=== PATIENT | female | born 1975 | race Caucasian/White ===

== ENCOUNTER 2020-04-11 16:56 | Emergency (ER) | payer OTHER, SELFPAY ==
--- NOTE | ~2020-04-11 | XR_ITS ---
EXAMINATION: XR chest 2V 04/11/2020 18:10 INDICATION: Mid chest pain and hypertension. MRI. PROCEDURE: 2 view chest COMPARISON: Comparison to multiple prior studies sequentially, with oldest reviewed study dated 09/15. FINDINGS: The lungs are clear. The cardiomediastinal silhouette is within normal limits. There are no pleural effusions. There is no pneumothorax suspected. IMPRESSION: 1: NO ACUTE CARDIOPULMONARY DISEASE. Reviewed, dictated and finalized at location A.
--- NOTE | ~2020-04-11 | CT_ITS ---
EXAMINATION: CT BRAIN W/O DATE: 04/11/2020 19:17 INDICATION: Weakness and dizziness TECHNIQUE: Computed tomography (CT) of the head was performed without intravenous contrast. The dose- length product was 605.33 mGy-cm. Automated exposure control and iterative reconstruction technique w ere employed. COMPARISON: No prior studies for comparison. FINDINGS: Normal brain parenchymal volume for age. Normal ontiveros-white differentiation. No acute intrac ranial hemorrhage, infarction, mass or mass effect. No ventriculomegaly or midline shift. Midline sagittal images demonstrate a normal corpus callosum, c raniovertebral junction and sella turcica. Basilar cisterns are patent. Paranasal sinuses and mastoids are pneumatized. No depressed skull fractures. IMPRESSION: 1. No acute intracranial abnormality. Reviewed, dictated and finalized at location A.
[2020-04-11 17:37] VITALS: BP 157/99; PULSE 72; PULSE 76; RESP 15; TEMP 37; O2SAT 98
--- NOTE | 2020-04-11 17:46 | ECG_ITS ---
Measurements Intervals [place] Rate: 79 P: 55 NM: 149 QRS: 10 QRSD: 114 T: -7 QT: 377 QTc: 432 Interpretive Statements SINUS RHYTHM POSSIBLE LEFT ATRIAL ENLARGEMENT INCOMPLETE RIGHT BUNDLE BRANCH BLOCK BORDERLINE ST-T WAVE ABNORMALITY- INFERIOR LEADS BASELINE ARTIFACT- I, III, AVL BORDERLINE ECG Electronically Signed On 04-12-2020 7:00:18 CDT by Austen Kauffman D.O.
[2020-04-11 17:58] LABS: Basophils Absolute Auto 0.1 K/mm3 (0.0-0.1); Eosinophils Absolute Auto 0.1 K/mm3 (0-0.3); Eosinophils Percent Auto 1.5 % (0-4.4); Hematocrit 40.5 % (37.0-47.0); Hemoglobin 13.3 g/dL (12.0-15.0); Immature Granulocyte Absolute 0.01 K/mm3 (0.00-0.031); Immature Granulocyte Percent A 0.2 % (0-0.5); Lymphocytes Absolute Auto 2.82 K/mm3 (0.9-3.2); Mean Corpuscular HGB Conc 32.8 g/dl (32-36); Mean Corpuscular Hemoglobin 28.5 pg (26-34); Mean Corpuscular Volume 86.9 fl (80-100); Mean Platelet Volume 10.7 fl (7.4-10.4); Monocytes Absolute Auto 0.5 K/mm3 (0.1-0.6); Monocytes Percent Auto 7.7 % (2.6-8.5); Neutrophils Absolute Auto 2.5 K/mm3 (1.3-6.7); Neutrophils Percent Auto 41.6 % (45.5-73.1); Platelet Count Result 235 k/mm3 (150-375); Red Blood Count 4.66 M/mm3 (4.2-5.4); Red Cell Distribution Width 12.6 % (11.5-14.5); White Blood Count 5.9 K/mm3 (4.5-10.0)
--- NOTE | 2020-04-11 18:00 | PC.NURSE ---
Pt taken to Xray
[2020-04-11 18:09] LABS: Prothrombin Time 12.4 Seconds (11.1-14.7)
[2020-04-11 18:10] LABS: Partial Thromboplastin Time 28.6 SECONDS (22.3-36.8)
[2020-04-11 18:21] LABS: Blood Urea Nitrogen 20 mg/dL (7-17); Calcium 9.1 mg/dL (8.4-10.2); Carbon Dioxide 30 mmol/L (22-30); Chloride 102 mmol/L (98-107); Estimated CRCL calculation 103 ml/min; Estimated Glomerular Filt Rate > 60; Glucose 83 mg/dL (65-105); Potassium 3.8 mmol/L (3.4-5.0); Sodium 138 mmol/L (137-145)
[2020-04-11] MEDS: ASPIRIN 81 MG CHEWABLE TABLET 324 MG PO (18:21)
[2020-04-11 18:33] LABS: Troponin I < 0.012 ng/mL (0.000-0.034)
--- NOTE | 2020-04-11 18:42 | ED.CHESTPAIN ---
HPI - Chest Pain General Chief Complaint: Chest Pain Stated Complaint: chest tightness Time Seen by Provider: 04/11/20 18:27 Source: patient Mode of arrival: ambulatory Limitations: no limitations History of Present Illness HPI narrative: This is a 44 year old female that presents to the ER for chest tightness that started 3 hours prior to arrival. Reports she was sitting at work and started to note some chest tightness. Reports she got lightheaded and felt weak. Also reports nausea and a headache. Denies fever, shortness of breath, or cough. Related Data Home Medications Medication Instructions Recorded Confirmed aspirin 81 mg tablet,delayed 81 mg PO DAILY 12/03/19 04/11/20 release atorvastatin 40 mg tablet 40 mg PO DAILY 12/03/19 04/11/20 losartan 25 mg tablet 25 mg PO DAILY 12/03/19 04/11/20 metoprolol succinate 25 mg 25 mg PO DAILY 12/03/19 04/11/20 tablet,extended release 24 hr Allergies Allergy/AdvReac Type Severity Reaction Status Date / Time No Known Allergies Allergy Verified 04/11/20 17:43 Review of Systems Review of Systems: Narrative: CONSTITUTIONAL: Denies fever CARDIOVASCULAR: Reports chest pain RESPIRATORY: Denies cough or dyspnea. GASTROINTESTINAL: Reports nausea. Denies vomiting NEUROLOGIC: Reports headache and weakness. 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 HEAD: Normocephalic, atraumatic. EYES: EOMI. NECK: Supple. No adenopathy or masses. No carotid bruits or JVD CHEST: Clear to auscultation. No respiratory distress. No wheezes rales or rhonchi HEART: Regular rate and rhythm. No murmur heard. Normal peripheral pulses. EXTREMITIES: Normal range of motion. No edema. SKIN: Warm, dry, no rash. NEURO: No focal deficits. Alert and oriented x3. PSYCH: Normal mood and affect Course Vital Signs Vital signs: Vital Signs Temperature 98.6 F 04/11/20 17:37 Pulse Rate 72 04/11/20 17:37 Respiratory Rate 15 04/11/20 17:37 Blood Pressure 157/99 H 04/11/20 17:37 Pulse Oximetry 98 04/11/20 17:37 Temperature 98.6 F 04/11/20 17:37 Pulse Rate 70 04/11/20 20:43 Respiratory Rate 15 04/11/20 20:43 Blood Pressure 113/73 04/11/20 20:43 Pulse Oximetry 99 04/11/20 20:43 MDM - Chest Pain MDM Narrative Medical decision making narrative: Patient presents the emergency department for an episode of chest pain today. Patient's chest pain has resolved. Vitals are normal other than mild elevation of blood pressure to systolic in the 160s on arrival. CBC and metabolic panel are without acute changes. Baseline and 3-hour troponin are negative. No concerning changes on EKG. Shows evidence of her old AR. Appears the same as EKG from July 2018. Chest x-ray is without acute changes. CT scan of the brain is without acute abnormalities. Patient's heart score is 3. Currently denies any symptoms. Reports she is feeling better after fluids and Tylenol. Patient had a stress test in July 2018 which was un
[2020-04-11] MEDS: SODIUM CHLORIDE 0.9% IV 500 ML 999 ML IV CONT (19:07)
[2020-04-11 19:21] VITALS: BP 140/85; PULSE 62
[2020-04-11 19:23] VITALS: BP 136/85; BP 152/86; PULSE 65; PULSE 69
[2020-04-11 19:28] VITALS: BP 136/85; PULSE 67; RESP 22; O2SAT 100
--- NOTE | 2020-04-11 19:28 | PC.NURSE ---
Assumed care of pt at this time. report from YAMILE Zaman
[2020-04-11 20:43] VITALS: BP 113/73; PULSE 70; RESP 15; O2SAT 99
[2020-04-11 21:21] LABS: Troponin I < 0.012 ng/mL (0.000-0.034)
[2020-04-11 21:50] VITALS: BP 129/95; PULSE 63; RESP 23; O2SAT 94
== END 2020-04-11 21:50 | disposition home or self-care (01) ==
PROVIDERS: Physician Assistant; Emergency Provider Emergency Medicine; PCP Internal Medicine
DX: R07.89 Other chest pain (principal); I25.10 Atherosclerotic heart disease of native coronary artery without angina pectoris; I10 Essential (primary) hypertension; E78.00 Pure hypercholesterolemia, unspecified; K21.9 Gastro-esophageal reflux disease without esophagitis; Z95.5 Presence of coronary angioplasty implant and graft; Z87.891 Personal history of nicotine dependence; I45.10 Unspecified right bundle-branch block; R94.31 Abnormal electrocardiogram [ECG] [EKG]; Z79.82 Long term (current) use of aspirin
CPT/HCPCS: 36415; 70450; 71046; 80048; 81025; 84484; 85025; 85610; 85730; 93005; 96361; 96365; 99284; A9270; J0131; J7040

== ENCOUNTER 2020-11-16 13:31 | Observation (INO) | payer OTHER, SELFPAY ==
[2020-11-16] VITALS (13 sets, daily range): BP systolic 108–131; BP diastolic 57–84; PULSE 59–72; RESP 14–21; TEMP 36.2–37; O2SAT 95–100; BMI 39.3
--- NOTE | ~2020-11-16 | NM_ITS ---
EXAMINATION: NM stress w perf spect multi DATE: 11/17/2020 15:40 INDICATION: Chest pain. Coronary atherosclerosis. TECHNIQUE: Rest images were obtained following intravenous administration of 10.2 mCi Tc99m tetrofosm in (Myoview). The patient performed an exercise activity. At peak exercise, 30.5 mCi Tc99m tetrofosmi n (Myoview) was administered intravenously, and stress images were obtained. Data was reconstructed i nto short axis and horizontal and vertical long axis SPECT images. Gated SPECT images were also obtai yash. COMPARISON: Myocardial perfusion imaging 08/03/2018 FINDINGS: There is no definite reversible or fixed perfusion abnormality to suggest ischemia or infar ction. There is no segmental wall motion abnormality. Left ventricular ejection fraction measures > 70%. IMPRESSION: 1. No definite ischemia or infarct. 2. Normal left ventricular ejection fraction measuring >70%. Reviewed, dictated and finalized at location A. LATORY AFFAIRS INTERN
--- NOTE | ~2020-11-16 | XR_ITS ---
EXAMINATION: XR chest 1V portable DATE: 11/16/2020 14:12 INDICATION: Shortness of breath and midsternal chest pain TECHNIQUE: frontal view of the chest was obtained. COMPARISON: Chest radiograph dated 04/11/2020 FINDINGS: The lungs remain clear with no focal airspace opacities, pulmonary edema, pleural effusion or pneumot horax. The cardiomediastinal silhouette is normal. Visualized bones and soft tissues are unremarkable . IMPRESSION: 1. No acute cardiopulmonary disease. Reviewed, dictated and finalized at location A. ECTION MGR
--- NOTE | ~2020-11-16 | CT_ITS ---
EXAMINATION: CTA chest PE protocol DATE: 11/16/2020 17:18 INDICATION: Chest pain TECHNIQUE: Computed tomography angiography (CTA) of the chest was performed with 100 mL Omnipaque-350 intravenous contrast timed to evaluate the pulmonary arteries. Coronal maximum intensity projection 3D-reconstructions were created by the technologist. The dose-length product (DLP) was 576.80 mGy-cm. Automated exposure control and iterative reconstruction technique were employed. COMPARISON: None. FINDINGS: The pulmonary arteries are well-opacified. Respiratory motion artifact slightly limits eval uation for pulmonary embolism. No central pulmonary embolism is identified. There is mild dependent a telectasis. No pleural effusion or pneumothorax is identified. No pathologically enlarged thoracic ly mph nodes are identified. The heart size is normal. There is mild thoracic spondylosis. The gallbladd er is surgically absent. IMPRESSION: 1. No pulmonary embolism or acute cardiopulmonary abnormality. Reviewed, dictated and finalized at location A. D CARE NURSE
--- NOTE | 2020-11-16 13:33 | ECG_ITS ---
Measurements Intervals [place] Rate: 63 P: 68 GA: 164 QRS: 41 QRSD: 100 T: 36 QT: 395 QTc: 407 Interpretive Statements SINUS RHYTHM INCOMPLETE RIGHT BUNDLE BRANCH BLOCK LOW QRS VOLTAGE IN PRECORDIAL LEADS BASELINE ARTIFACT- I, II, III, AVR, AVL, AVF BORDERLINE ECG Electronically Signed On 11-16-2020 16:31:58 RADIO OPERATOR by Austen Kauffman D.O.
[2020-11-16] MEDS: ASPIRIN 81 MG CHEWABLE TABLET 324 MG PO (14:01)
[2020-11-16 14:11] LABS: Basophils Absolute Auto 0.1 K/mm3 (0.0-0.1); Basophils Percent Auto 0.9 % (0.2-1.2); Eosinophils Absolute Auto 0.1 K/mm3 (0-0.3); Eosinophils Percent Auto 1.6 % (0-4.4); Hematocrit 41.2 % (37.0-47.0); Hemoglobin 13.4 g/dL (12.0-15.0); Immature Granulocyte Absolute 0.01 K/mm3 (0.00-0.031); Immature Granulocyte Percent A 0.2 % (0-0.5); Lymphocytes Absolute Auto 1.98 K/mm3 (0.9-3.2); Lymphocytes Percent Auto 34.6 % (18.3-44.2); Mean Corpuscular HGB Conc 32.5 g/dl (32-36); Mean Corpuscular Hemoglobin 28.5 pg (26-34); Mean Corpuscular Volume 87.5 fl (80-100); Mean Platelet Volume 10.2 fl (7.4-10.4); Monocytes Absolute Auto 0.5 K/mm3 (0.1-0.6); Neutrophils Absolute Auto 3.1 K/mm3 (1.3-6.7); Neutrophils Percent Auto 54.7 % (45.5-73.1); Platelet Count Result 252 k/mm3 (150-375); Red Blood Count 4.71 M/mm3 (4.2-5.4); White Blood Count 5.7 K/mm3 (4.5-10.0)
[2020-11-16 14:21] LABS: Anion Gap 7 mmol/L (8-16); Blood Urea Nitrogen 19 mg/dL (7-17); Calcium 8.8 mg/dL (8.4-10.2); Carbon Dioxide 25 mmol/L (22-30); Chloride 105 mmol/L (98-107); Estimated CRCL calculation 101 ml/min; Estimated Glomerular Filt Rate > 60; Glucose 89 mg/dL (65-105); Potassium 4.4 mmol/L (3.4-5.0); Sodium 137 mmol/L (137-145)
[2020-11-16 14:23] LABS: Prothrombin Time 13.6 Seconds (11.1-14.7)
[2020-11-16 14:24] LABS: Partial Thromboplastin Time 32.1 SECONDS (22.3-36.8)
[2020-11-16 14:33] LABS: Troponin I < 0.012 ng/mL (0.000-0.034)
--- NOTE | 2020-11-16 14:41 | ED.CHESTPAIN ---
HPI - Chest Pain General Chief Complaint: Chest Pain Stated Complaint: chest pain Time Seen by Provider: 11/16/20 14:31 Source: patient and family Mode of arrival: ambulatory Limitations: no limitations History of Present Illness HPI narrative: 45 years old white female presents with intermittent retrosternal chest heaviness radiating all the way to the upper back started 3 to 4 days ago. Pain gets worse with any activity. Patient denies any fever, notes, nausea, vomiting, headache, shortness of breath, exposure to anybody known having COVID-19. History of coronary stents March 2018. History of hypertension, hyperlipidemia, depression. Patient is on baby aspirin once a day. Sister of heart attack. Related Data Home Medications Medication Instructions Recorded Confirmed aspirin 81 mg tablet,delayed 81 mg PO DAILY 12/03/19 04/11/20 release atorvastatin 40 mg tablet 40 mg PO DAILY 12/03/19 04/11/20 losartan 25 mg tablet 25 mg PO DAILY 12/03/19 04/11/20 metoprolol succinate 25 mg 25 mg PO DAILY 12/03/19 04/11/20 tablet,extended release 24 hr nitroglycerin mg 11/16/20 Allergies Allergy/AdvReac Type Severity Reaction Status Date / Time No Known Allergies Allergy Verified 11/16/20 14:28 Review of Systems Review of Systems: Narrative: CONSTITUTIONAL: Denies fever, chills, or sweats. EYES: Denies visual changes, redness, or discharge. ENT: Denies rhinorrhea, congestion, sore throat, or otalgia. CARDIOVASCULAR: Denies chest pain, palpitations, or edema. RESPIRATORY: Denies cough or dyspnea. GASTROINTESTINAL: Denies abdominal pain, nausea, vomiting, or diarrhea. GENITOURINARY: Denies dysuria or hematuria. SKIN: Denies rash or itching. MUSCULOSKELETAL: Denies back pain, joint pain, or myalgia. NEUROLOGIC: Denies headache, numbness, or weakness. PSYCHIATRIC: Denies anxiety or depression. 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 Essential (primary) hypertension Gastro-esophageal reflux disease without esophagitis Pure hypercholesterolemia Surgical History Surgical History H/O dilation and curettage H/O tubal ligation History of cryosurgery History of partial hysterectomy S/P removal of thyroid nodule Stented coronary artery Family History Family History Mother Hypertension Sibling Family history of rheumatoid arthritis Other Asthma Social History Social History Smoking status: Former smoker Alcohol intake: never Gender identity (if verbalized by the patient): Female Exam Narrative: Exam Narrative: General appearance: Well-developed, well-nourished Skin: Normal color Head: Normocephalic, nontraumatic Eyes: Clear conjunctiva ENT: Oropharynx normal, ears normal, nose normal Neck: Supple, nontender Chest and respiratory: Airway patent, no respiratory distress, no accessory muscle use Heart: Regular rate/rhythm Abdomen: Soft, nontender, no organomegaly, quiet bowel sounds Vascular: Normal peripheral pulses, normal capillary refill. Musculoskeletal: Normal range of motion, nontender back Neurologic: Alert and oriented ?3, PLATE MILL HAND is normal as tested, no gross motor deficit Course Course Emergency Course: Stable Consultations Consultation #1: Dr. Nova Date: 11/16/20 Time: 14:53 Vital Signs Vital signs: Vital
[2020-11-16] MEDS: NITROGLYCERIN SL 0.4 MG TABLET SUBLINGUAL (15:59)
--- NOTE | 2020-11-16 16:00 | PC.NURSE ---
1557: Patient given nitro sublingual at this time. BP 126/78, HR 62, Pain 5. 1602: Reports pain still present, unchanged after first nitro administered. Second nitro given sublingual at. BP 111/85 HR 63. 1608: Reports minor relief of pain, rates 3 of 10 after second nitro administered. 105/65 HR 67. Patient reports some minor nausea at this time.
--- NOTE | 2020-11-16 16:17 | PM.IMHP ---
H&P: HPI History of Present Illness Date/Time: 11/16/20 16:17 Chief Complaint: Chest pain Narrative: Lucinda Rapp is a 45 year old female Who had a STEMI on 03/15/2018. She had nonocclusive coronary artery disease. She had been on aspirin and Brilinta at that time and is now off of Brilinta. She is now on atorvastatin and aspirin daily. The patient was found to have inferior ST-elevation MT involving leads 2 3 and AVF with reciprocal changes at that time. She was rushed to the cath lab technologist where the right coronary artery was found to be totally occluded in the mid segment she had a drug-eluting stent 3.5 x 15 deployed to the mid RCA. Ejection fraction was 65% with inferior hypokinesis at that time. Patient was found to have uncontrolled hypertension. Patient states she has been taking all her medications as prescribed. Patient had been seen by Dr. Borrero who placed the stent. Since that time the patient came to the emergency room on 04/11/2020 with complaints of chest tightness and this occurred at work at that time. 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 Her EKG was the same on that days it was in 2018 there was no acute changes. Today the patient was at work and she developed midsternal chest pain that was worse than the previous days. She said she had upper back pain that started 3-4 days ago she does work at [employer] . The patient stated that this started as upper back pain that started 3-4 days ago. She denied any nausea vomiting or diarrhea no diaphoresis. Her color looks good. The patient was given nitro in the emergency room and she was having some mild relief. The patient is complaining of just having pain just sitting there. She is not short of breath. She was having a conversation with me with the nurse came in and she stated that her pain was 4/10. She is complaining of pain upper sternal area. She complained of some right upper quadrant tenderness and stated that she does her gallbladder that was removed in the past. She also complains of having some tenderness to her her sternum and she has some pain upon deep breath to the right lower lobe of the lung. Chest x-ray was read as no acute cardiopulmonary disease. Patient was given aspirin and nitro subcu Lovenox and Lopressor in the emergency room. The patient's blood pressure was initially high but after the nitro did drop. The patient was telling me that the nitro did help some. Patient is being admitted observation status on 11/16/2020. Review of Systems Review of Systems: All systems reviewed & are unremarkable except as noted in HPI and below Constitutional: Constitutional: Reports as per HPI and Reports no additional constitutional complaints Eyes: Eyes: Reports as per HPI and Reports no additional eye complaints ENT: Reports system reviewed and no additional complaints, except as documented and Reports Normal hearing present Cardiovascular: Cardiovascular: Reports no additional cardiovascular complaints Respiratory: Respiratory: Reports no additional respiratory complaints and Reports no additional respiratory complaints Gastrointestinal: Gastrointestinal: Reports as per HPI and Reports no additional gastrointestinal complaints Musculoskeletal: Musculoskeletal: Reports no additional musculoskeletal complaints Integumentary/Breasts: Skin/Breast: Reports system reviewed and no additional complaints, except as docu and Reports as per HPI Neurologic: Reports system reviewed and no additional complaints, except as documented, Reports as per HPI and Reports Normal hearing present Psychiatric: Psychiatric: Reports no additional psychiatric complaints and Reports as per HPI Endocrine: Endocrine: Reports no additional endocrine complaints Hematologic/Lymphatic: Hematologic/Lymphatic: Reports no additional hematologic/lymphatic complaints Allergic/Immunologic: Allergic/Immunologic: Reports no additional allergic/immunologic co
[2020-11-16] MEDS: METOPROLOL TARTRATE 50 MG TAB 25 MG PO (17:27)
[2020-11-16] MEDS: ENOXAPARIN 100 MG/ML SYRINGE SUB-Q (17:27)
[2020-11-16 17:42] LABS: Troponin I < 0.012 ng/mL (0.000-0.034)
--- NOTE | 2020-11-16 17:43 | ECG_ITS ---
Measurements Intervals [place] Rate: 58 P: 38 NM: 180 QRS: -1 QRSD: 116 T: 39 QT: 448 QTc: 442 Interpretive Statements SINUS BRADYCARDIA INCOMPLETE RIGHT BUNDLE BRANCH BLOCK BASELINE ARTIFACT- I, III, AVL BORDERLINE ECG Electronically Signed On 11-20-2020 14:11:36 SENIOR BENEFITS SPECIALIST by Austen Kauffman D.O.
[2020-11-16 20:16] LABS: Troponin I < 0.012 ng/mL (0.000-0.034)
[2020-11-16] MEDS: FAMOTIDINE 20 MG TABLET 40 MG PO (20:38)
[2020-11-17] VITALS (10 sets, daily range): BP systolic 123–129; BP diastolic 71–75; PULSE 59–72; RESP 17–18; TEMP 36.7–37.1; O2SAT 97
--- NOTE | 2020-11-17 | EST_ITS ---
Patient Info Name: Lucinda Rapp Age: 45 years : 1975 Gender: Female Ht: 64 in Wt: 220 lbs BSA: 2.17 m2 Exam Date: 11/17/2020 2:14 PM Exam Location: [facility] Stress Patient Status: Inpatient Admit Date: 11/16/2020 Staff Ordering Physician: Carlos Mckeon MD Attending Provider: Angel Melo MD Exercise Technologist: Yoav Patiño RDCS, RT Exercise Physician: Vitor Barnes MD Exam Type: CA stress test treadmill w NM Study Info A nuclear stress test was performed. Summary 1. Normal sinus rhythm - normal ECG. 2. No abnormal ST/T wave changes with exercise. 3. Clinically and electrocardiographically negative exercise stress test at 92% of age predicted maximum heart rate. 4. Myocardial perfusion study to be reported by the Radiology Department. Protocol: Michael Stress ECG Details Stage: REST Duration (min): 2 min : 51 sec Speed (mph): 0.0 Grade (%): 0 HR (bpm): 66 SBP (mmHg): 121 DBP (mmHg): 75 METS: --- Stage: REST Duration (min): 26 min : 38 sec Speed (mph): 0.0 Grade (%): 0 HR (bpm): 67 SBP (mmHg): 121 DBP (mmHg): 75 METS: --- Stage: STAGE 1 Duration (min): 1 min : 0 sec Speed (mph): 1.7 Grade (%): 10 HR (bpm): 99 SBP (mmHg): 121 DBP (mmHg): 75 METS: --- Stage: STAGE 1 Duration (min): 2 min : 0 sec Speed (mph): 1.7 Grade (%): 10 HR (bpm): 105 SBP (mmHg): 121 DBP (mmHg): 75 METS: --- Stage: STAGE 1 Duration (min): 3 min : 0 sec Speed (mph): 1.7 Grade (%): 10 HR (bpm): 108 SBP (mmHg): 138 DBP (mmHg): 51 METS: --- Stage: STAGE 2 Duration (min): 1 min : 0 sec Speed (mph): 2.5 Grade (%): 12 HR (bpm): 121 SBP (mmHg): 138 DBP (mmHg): 51 METS: --- Stage: STAGE 2 Duration (min): 2 min : 0 sec Speed (mph): 2.5 Grade (%): 12 HR (bpm): 131 SBP (mmHg): 140 DBP (mmHg): 50 METS: --- Stage: STAGE 2 Duration (min): 3 min : 0 sec Speed (mph): 2.5 Grade (%): 12 HR (bpm): 134 SBP (mmHg): 140 DBP (mmHg): 50 METS: --- Stage: STAGE 3 Duration (min): 1 min : 0 sec Speed (mph): 3.4 Grade (%): 14 HR (bpm): 151 SBP (mmHg): 126 DBP (mmHg): 58 METS: --- Stage: STAGE 3 Duration (min): 2 min : 0 sec Speed (mph): 3.4 Grade (%): 14 HR (bpm): 161 SBP (mmHg): 126 DBP (mmHg): 58 METS: --- Stage: STAGE 3 Duration (min): 2 min : 22 sec Speed (mph): 3.4 Grade (%): 14 HR (bpm): 163 SBP (mmHg): 126 DBP (mmHg): 58 METS: --- Stage: RECOVERY Duration (min): 0 min : 37 sec Speed (mph): 0.0 Grade (%): 0 HR (bpm): 152 SBP (mmHg): 126 DBP (mmHg): 58 METS: --- Stage: RECOVERY Duration (min): 1 min : 37 sec Speed (mph): 0.0 Grade (%): 0 HR (bpm): 121 SBP (mmHg): 126 DBP (mmHg): 58 METS:
--- NOTE | 2020-11-17 06:00 | ECG_ITS ---
Measurements Intervals [place] Rate: 60 P: 33 RI: 179 QRS: 60 QRSD: 115 T: 28 QT: 433 QTc: 435 Interpretive Statements SINUS RHYTHM INCOMPLETE RIGHT BUNDLE BRANCH BLOCK MINIMAL Q WAVES- INFERIOR LEADS BORDERLINE ECG Electronically Signed On 11-17-2020 7:12:21 TELEGRAPH REPEATER TECHNICIAN by Austen Kauffman D.O.
[2020-11-17 06:08] LABS: Basophils Percent Auto 0.6 % (0.2-1.2); Eosinophils Absolute Auto 0.2 K/mm3 (0-0.3); Eosinophils Percent Auto 2.5 % (0-4.4); Hematocrit 39.5 % (37.0-47.0); Hemoglobin 13.3 g/dL (12.0-15.0); Immature Granulocyte Absolute 0.02 K/mm3 (0.00-0.031); Immature Granulocyte Percent A 0.3 % (0-0.5); Lymphocytes Absolute Auto 2.53 K/mm3 (0.9-3.2); Mean Corpuscular HGB Conc 33.7 g/dl (32-36); Mean Corpuscular Hemoglobin 28.9 pg (26-34); Mean Corpuscular Volume 85.9 fl (80-100); Monocytes Absolute Auto 0.5 K/mm3 (0.1-0.6); Monocytes Percent Auto 6.9 % (2.6-8.5); Neutrophils Absolute Auto 3.6 K/mm3 (1.3-6.7); Neutrophils Percent Auto 52.7 % (45.5-73.1); Platelet Count Result 217 k/mm3 (150-375); White Blood Count 6.8 K/mm3 (4.5-10.0)
[2020-11-17 06:22] LABS: Alanine Aminotransferase 22 U/L (4-35); Albumin Level 3.6 g/dL (3.5-5.1); Alkaline Phosphatase 68 U/L (38-126); Anion Gap 4 mmol/L (8-16); Aspartate Amino Transferase 23 U/L (14-36); Bilirubin,Total 1.1 mg/dL (0.2-1.3); Blood Urea Nitrogen 15 mg/dL (7-17); Calcium 8.5 mg/dL (8.4-10.2); Carbon Dioxide 28 mmol/L (22-30); Chloride 105 mmol/L (98-107); Estimated CRCL calculation 104 ml/min; Estimated Glomerular Filt Rate > 60; Glucose 85 mg/dL (65-105); Potassium 3.7 mmol/L (3.4-5.0); Sodium 137 mmol/L (137-145)
[2020-11-17] MEDS: ASPIRIN 81 MG ENTERIC TABLET PO (07:58)
[2020-11-17] MEDS: CITALOPRAM HYDROBROMIDE 20 MG TABLET PO (07:59)
[2020-11-17] MEDS: FAMOTIDINE 20 MG TABLET 40 MG PO (07:59)
[2020-11-17] MEDS: METOPROLOL SUCCINATE EXT REL 25 MG TABCR PO (07:59)
[2020-11-17] MEDS: LOSARTAN POTASSIUM 25 MG TABLET PO (08:00)
[2020-11-17] MEDS: ATORVASTATIN 40 MG TABLET PO (08:00)
--- NOTE | 2020-11-17 11:07 | PM.CNCAR ---
Assessment and Plan Assessment and plan (1) Chest pain: Qualifiers: Chest pain type: unspecified Qualified Code(s): R07.9 - Chest pain, unspecified Code(s): R07.9 - Chest pain, unspecified Status: Acute Assessment and Plan: Somewhat atypical. It is worsened by bending over but also relieved with nitroglycerin. Will keep NPO for an exercise myocardial perfusion study later today. In the meantime continue her aspirin, statin, losartan. (2) Coronary artery disease involving big sandy coronary artery of big sandy heart: Code(s): I25.10 - Atherosclerotic heart disease of big [place] coronary artery without angina pectoris Status: Chronic Assessment and Plan: As above (3) Essential (primary) hypertension: Code(s): I10 - Essential (primary) hypertension Status: Chronic Assessment and Plan: At goal (4) Hyperlipidemia, unspecified: Code(s): E78.5 - Hyperlipidemia, unspecified Status: Acute Assessment and Plan: On statin (5) JENNA (obstructive sleep apnea): Code(s): G47.33 - Obstructive sleep apnea (adult) (pediatric) Status: Acute Assessment and Plan: Needs CPAP as outpatient History of Present Illness History of Present Illness Consult date/time: 11/17/20 11:07 Requesting physician: Manuelito Lubin MD Consult reason: chest pain Reason For Visit: Chest Pain Narrative: Date of service 11/17/2020 Reason for consultation: Chest pain History: Patient is a 45-year-old female patient of Dr. Borrero who had an inferior ST-elevation myocardial infarction had [facility] on March 14, 2018. Patient did receive 1 drug-eluting stent with 3.5 x 15 mm KAYLI to the totally occluded mid RCA segment. Patient did have mild disease elsewhere including the proximal RCA, distal left main. 50% lesion in a 1st diagonal branch. Circumflex with a 30-40% lesion. EF was 65%. Patient did undergo repeat coronary angiogram after that because of recurrence epigastric pain radiating to her back. At that time catheterization showed patent stents. Patient was last seen in May 2020. She had been having some epigastric pain in 2018 but EGD was unremarkable. She was at work at [employer] when she started develop worsening chest pain/epigastric pain. She had had 3-4 days worth of epigastric pain which radiated into her back associated with nausea and shortness of breath. It would come and go and be worsening whenever she bent over or picked up objects. Symptoms did feel similar to her previous myocardial infarction. Symptoms are not necessarily a good exertional with walking though. Not worse with food. She denies any syncope, presyncope. She does admit to some paroxysmal nocturnal dyspnea. No orthopnea. No edema. Because of the ongoing symptoms she was experiencing she came to the hospital. She was given nitroglycerin which did help her symptoms. Review of Systems Review of Systems: Narrative: Alert oriented and appears to be in no acute distress Constitutional: Constitutional: Denies fatigue and Denies weakness Eyes: Eyes: Denies blurry vision ENT: Reports Normal hearing present Cardiovascular: Cardiovascular: Reports chest pain Respiratory: Respiratory: Denies dyspnea Gastrointestinal: Gastrointestinal: Denies abdominal pain Genitourinary: Genitourinary: Denies flank pain Musculoskeletal: Musculoskeletal: Reports back pain and Denies neck pain Integumentary/Breasts: Skin/Breast: Denies dry skin Neurologic: Denies headache(s) Psychiatric: Psychiatric: Denies anxiety and Denies confusion Endocrine: Endocrine: Denies fatigue and Denies flushing Hematologic/Lymphatic: Hematologic/Lymphatic: Denies easy bleeding Allergic/Immunologic: Allergic/Immunologic: Denies GI upset with certain foods and Denies lip swelling PMFSH Past Medical History Medical History Body mass index (bmi) 39.0-39
--- NOTE | 2020-11-17 11:13 | PC.NURSE ---
Spoke with [facility] concerning an exercise stress test for patient. Since patient has been NPO since midnight, tech requested pt drink one orange juice and eat some crackers. Test will be performed around [address] Barnes.
[2020-11-17] MEDS: ENOXAPARIN 40 MG/0.4 ML SYRINGE SUB-Q (11:39)
[2020-11-17 11:48] LABS: Amylase 49 U/L (30-110); Lipase 53 U/L (23-300)
--- NOTE | 2020-11-17 15:39 | PC.NURSE ---
patient returned from Stress test procedure. monitor applied. Patient denies any pain at this time. will continue to monitor.
--- NOTE | 2020-11-17 17:14 | PM.DS ---
DS: Admitting Diagnosis Admitting Diagnosis Admitting Diagnosis: Chest pain DS: Discharge Diagnosis Discharge Diagnosis (1) Chest pain: Qualifiers: Chest pain type: unspecified Qualified Code(s): R07.9 - Chest pain, unspecified Code(s): R07.9 - Chest pain, unspecified Status: Acute Assessment and Plan: Date of Admission 11/16/20 Date of Discharge/DOS 11/17/20 Ms. Rapp is a 45yo F with history of coronary artery disease, hypertension and depression who presented to the ED for evaluation of chest pain. She described midsternal burning x 3 days prior to arrival, radiating to back. Lipase and amylase within normal limits. Troponins negative. EKG demonstrates sinus rhythm with right bundle branch block. She was treated with IV pepcid. She was evaluated by cardiology and underwent stress testing 11/17/20 which was negative; did not show any evidence to suggest ischemia and LV EF measured 70%. She was not having any pain day of discharge and this pain may have been of GI etiology. She should continue taking pepcid, could see GI for outpatient eval if pain returns. She was hemodynamically stable for discharge with instructions to follow up with PCP. Apnea link slightly positive suggesting she may suffer from sleep apnea. She describes poor sleep and wakes up tired. She notes she did an at-home sleep study, wasn't sure if she was wearing the monitor correctly. She was told she did not have sleep apnea at that time. I encouraged her to speak with her PCP to see if she may benefit from another sleep study. (2) Coronary artery disease involving [place] coronary artery of [place] heart: Code(s): I25.10 - Atherosclerotic heart disease of [place] coronary artery without angina pectoris Status: Chronic Assessment and Plan: History of coronary stenting in years past. Family history of CAD/[place]. Follow up [facility] cardiology. ACS ruled out. (3) Depression: Code(s): F32.9 - Major depressive disorder, single episode, unspecified Status: Chronic Assessment and Plan: Stable, continue home meds. (4) Essential (primary) hypertension: Code(s): I10 - Essential (primary) hypertension Status: Chronic Assessment and Plan: Continue home losartan and metoprolol. (5) Hyperlipidemia, unspecified: Code(s): E78.5 - Hyperlipidemia, unspecified Status: Acute Assessment and Plan: Continue with atorvastatin. (6) JENNA (obstructive sleep apnea): Code(s): G47.33 - Obstructive sleep apnea (adult) (pediatric) Status: Acute Assessment and Plan: Apnea link positive. Discussed she may speak with her PCP to see if she needs another sleep study. DS: Summary Hospital Course Hospital Course: See above. Time Spent with Patient Time attestation: Total time spent providing and/or coordinating discharge services: 35 minutes Exam Narrative: Exam Narrative: General: Female resting supine in bed in no acute distress. HEENT: Normocephalic, EOMI, oral mucosa moist. Cardiovascular: Rate and rhythm are regular. Respiratory: Lungs clear to auscultation bilaterally. Respirations even and non-labored. Tolerating room air. Abdomen: Soft, mild epigastric tenderness to palpation without guarding, non-distended, bowel sounds present. Extremities: Peripheral pulses intact. No edema. Neuro: No focal neurological deficits. Speech is clear. DS: Data Data Completed and Pending Labs on day of discharge: Last Vital Signs Temp 98.3 F 11/17/20 11:39 Pulse 72 11/17/20 16:00 Resp 17 11/17/20 16:00 BP 123/74 11/17/20 11:39 Pulse Ox 97 11/17/20 16:00 ITS Impressions Chest X-Ray
== END 2020-11-17 17:52 | disposition home or self-care (01) ==
LOC: ANHED 15:21 → ANHCPC 16:12
PROVIDERS: Internal Medicine Cardiovascular Disease; Nurse Practitioner; Admitting Provider Internal Medicine; Emergency Provider Emergency Medicine; PCP Internal Medicine; Visit Provider Family Medicine
DX: R07.9 Chest pain, unspecified (principal); Z79.82 Long term (current) use of aspirin; I25.10 Atherosclerotic heart disease of native coronary artery without angina pectoris; I10 Essential (primary) hypertension; E78.00 Pure hypercholesterolemia, unspecified; I25.2 Old myocardial infarction; K21.9 Gastro-esophageal reflux disease without esophagitis; F32.9 Major depressive disorder, single episode, unspecified; Z68.39 Body mass index [BMI] 39.0-39.9, adult; E66.9 Obesity, unspecified; Z87.891 Personal history of nicotine dependence; Z95.5 Presence of coronary angioplasty implant and graft; G47.33 Obstructive sleep apnea (adult) (pediatric)
CPT/HCPCS: 36415; 71045; 71275; 78452; 80048; 80053; 82150; 82728; 83690; 84443; 84484; 85025; 85610; 85730; 93005; 93017; 94762; 96372; 99285; A9270; A9502; G0378; J1650; Q9967

== ENCOUNTER → 2021-03-10 10:09 | Outpatient (CLI) | payer OTHER, SELFPAY ==
[2021-03-10 20:46] LABS: SARS-CoV-2 RNA PCR Negative
== END ==
PROVIDERS: PCP Internal Medicine; Visit Provider Internal Medicine
DX: Z20.822 Contact with and (suspected) exposure to COVID-19 (principal)
CPT/HCPCS: C9803; U0003; U0005

== ENCOUNTER 2021-07-03 22:23 | Emergency (ER) | payer OTHER, SELFPAY ==
--- NOTE | ~2021-07-03 | XR_ITS ---
XR chest 2V DATE: 07/03/2021 23:07 INDICATION: Upper chest pain for one month. History of hypertension, coronary artery disease, gastric reflux disease. TECHNIQUE: PA and lateral views COMPARISON: 11/16/2020 CT pulmonary scan 11/16/2020 portable AP chest FINDINGS: Normal heart size. No hilar or mediastinal enlargement. No pulmonary infiltrate or consolidation, pleural effusion or pulmonary vascular congestion or pneumo thorax. Included skeletal structures are unremarkable. Status post cholecystectomy. IMPRESSION: No active cardiopulmonary disease Reviewed, dictated and finalized at location A.
--- NOTE | 2021-07-03 22:25 | ECG_ITS ---
Measurements Intervals [place] Rate: 78 P: 62 WV: 147 QRS: 35 QRSD: 109 T: 5 QT: 371 QTc: 425 Interpretive Statements SINUS RHYTHM INCOMPLETE RIGHT BUNDLE BRANCH BLOCK CONSIDER INFERIOR INFARCT, AGE INDETERMINATE ABNORMAL ECG Electronically Signed On 07-04-2021 6:50:18 CDT by Austen Kauffman D.O.
[2021-07-03 22:45] VITALS: BP 146/87; PULSE 78; RESP 18; TEMP 36.6; O2SAT 98
[2021-07-03 22:52] LABS: Basophils Absolute Auto 0.1 K/mm3 (0.0-0.1); Basophils Percent Auto 0.7 % (0.2-1.2); Eosinophils Absolute Auto 0.2 K/mm3 (0-0.3); Eosinophils Percent Auto 2.1 % (0-4.4); Hematocrit 41.9 % (37.0-47.0); Hemoglobin 13.5 g/dL (12.0-15.0); Immature Granulocyte Absolute 0.03 K/mm3 (0.00-0.031); Immature Granulocyte Percent A 0.3 % (0-0.5); Lymphocytes Absolute Auto 3.25 K/mm3 (0.9-3.2); Lymphocytes Percent Auto 32.4 % (18.3-44.2); Mean Corpuscular HGB Conc 32.2 g/dl (32-36); Mean Corpuscular Hemoglobin 28.4 pg (26-34); Mean Platelet Volume 10.2 fl (7.4-10.4); Monocytes Absolute Auto 0.6 K/mm3 (0.1-0.6); Monocytes Percent Auto 6.2 % (2.6-8.5); Neutrophils Absolute Auto 5.9 K/mm3 (1.3-6.7); Neutrophils Percent Auto 58.3 % (45.5-73.1); Platelet Count Result 276 k/mm3 (150-375); Red Blood Count 4.76 M/mm3 (4.2-5.4); Red Cell Distribution Width 13.4 % (11.5-14.5)
[2021-07-03 22:56] LABS: Anion Gap 6 mmol/L (8-16); Blood Urea Nitrogen 20 mg/dL (7-17); Calcium 9.1 mg/dL (8.4-10.2); Carbon Dioxide 29 mmol/L (22-30); Chloride 98 mmol/L (98-107); Estimated CRCL calculation 83 ml/min; Estimated Glomerular Filt Rate > 60; Glucose 72 mg/dL (65-110); Potassium 3.9 mmol/L (3.4-5.0); Sodium 133 mmol/L (137-145)
[2021-07-03 23:02] LABS: INR 0.8; Partial Thromboplastin Time 28.7 SECONDS (22.3-36.8); Prothrombin Time 11.4 Seconds (11.1-14.7)
[2021-07-03 23:08] LABS: Troponin I < 0.012 ng/mL (0.000-0.034)
[2021-07-04] VITALS (9 sets, daily range): BP systolic 131–135; BP diastolic 75–84; PULSE 73–82; RESP 13–24; O2SAT 95–100
[2021-07-04] MEDS: HYDROcodone/acetaminophen (*CRX) 5-325 MG TABLET 1 TAB PO (00:58)
[2021-07-04] MEDS: KETOROLAC (*BKC) 60 MG/2 ML VIAL IM (00:59)
[2021-07-04 02:19] LABS: Troponin I < 0.012 ng/mL (0.000-0.034)
--- NOTE | 2021-07-04 02:27 | ED.CHESTPAIN ---
HPI - Chest Pain General Chief Complaint: Chest Pain Stated Complaint: chest pain Time Seen by Provider: 07/04/21 00:29 History of Present Illness HPI narrative: Patient is a 46-year-old female who presents ER with chest pain. Ongoing over the last month. Saw PCP recently and was put on Medrol Dosepak. It was felt to be costochondritis. Patient's had a normal stress test in the last year. Pain is worse with palpation and movements of the arm. No fevers chills or sweats. No runny nose/sore throat/cough. Related Data Home Medications Medication Instructions Recorded Confirmed aspirin 81 mg tablet,delayed 81 mg PO DAILY 12/03/19 06/26/21 release atorvastatin 40 mg tablet 40 mg PO DAILY 12/03/19 06/26/21 losartan 25 mg tablet 25 mg PO DAILY 12/03/19 06/26/21 metoprolol succinate 25 mg 25 mg PO DAILY 12/03/19 06/26/21 tablet,extended release 24 hr nitroglycerin 0.4 mg SUBLINGUAL PRN 11/16/20 06/26/21 duloxetine mg PO 07/04/21 metoprolol tartrate 07/04/21 Allergies Allergy/AdvReac Type Severity Reaction Status Date / Time No Known Allergies Allergy Verified 07/04/21 00:35 Review of Systems Review of Systems: All systems reviewed & are unremarkable except as noted in HPI and below Constitutional: Constitutional: Denies chills, Denies fever(s) and Denies weakness ENT: Denies nasal congestion and Denies sore throat Cardiovascular: Cardiovascular: Reports chest pain, Denies rapid heart rate and Denies radiating jaw, neck or arm pain Respiratory: Respiratory: Denies cough, Denies dyspnea and Denies wheezing Gastrointestinal: Gastrointestinal: Denies nausea and Denies vomiting Musculoskeletal: Musculoskeletal: Reports back pain, Reports myalgias and Denies muscle cramps PMFSH Past Medical History Medical History Body mass index (bmi) 39.0-39.9, adult (04/13/19) Coronary artery disease involving [place] coronary artery of [place] heart Stent to mid RCA Coronary stent occlusion Depression Encounter for physical examination of 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 Family History Family History Mother Hypertension Sibling Family history of rheumatoid arthritis Other Asthma Social History Social History (Updated 06/29/21 @ 12:47 by Jack Serrano APRN) Social History: The patient lives with her significant other of approximately 20 years. She has 3 children. Her daughter is a durable power assistant city attorney for healthcare. The patient is a full code. 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 The patient does not use any alcohol marijuana or illicit drugs. The patient used to smoke she quit about 12 years ago. Smoking packs per day: 0.5 Smoking cigarettes per day: 10.0 Years smoked: 15 Smoking pack-years: 7.50 Tobacco type: cigarettes Second hand tobacco smoke exposure: No Alcohol intake: never Substance use: never Substance use type: does not use Gender identity (if verbalized by the patient): Female Sexual Orientation (if Verbalized by the Patient): Straight or Heterosexual Spiritual care concerns: No Exam Narrative: GENERAL: Well-appearing, well-nourished, and in no acute distress. HEAD: Normocephalic, atraumatic. CHEST: Clear to auscultation. No respiratory distress. HEART: Regular rate and rhythm. Normal peripheral pulses. Tender palpation over anterior chest wall along the sternum. ABDOMEN: Soft, nontender, nondistended. EXTREMITIES: Normal range o
== END 2021-07-04 02:41 | disposition home or self-care (01) ==
PROVIDERS: Emergency Provider Emergency Medicine; PCP Internal Medicine
DX: R07.89 Other chest pain (principal); I25.10 Atherosclerotic heart disease of native coronary artery without angina pectoris; F32.9 Major depressive disorder, single episode, unspecified; I10 Essential (primary) hypertension; E78.00 Pure hypercholesterolemia, unspecified; F17.210 Nicotine dependence, cigarettes, uncomplicated
CPT/HCPCS: 36415; 71046; 80048; 84484; 85025; 85610; 85730; 93005; 96372; 99284; A9270; J1885

== ENCOUNTER 2021-09-25 10:00 | Outpatient (RCR) | payer OTHER, SELFPAY ==
--- NOTE | 2021-08-03 12:39 | PTOPEVAL ---
PHYSICAL THERAPY EVALUATION Thank you for referring Lucinda Rapp to [facility].? Lucinda was evaluated for the dx of cervicalgia/right arm radiculopathy. The patient is scheduled to be seen for therapy? 2 x/week for 4 weeks. Please review, sign, date and return this plan of care GUSTABO. I agree with and certify that the following plan of care is medically necessary. Referring Physician Date Attending Provider: Redd Toribio DO *PT Outpatient Evaluation Start: 08/03/21 10:53 Freq: Status: Active Protocol: Document 08/03/21 10:53 [facility] (Rec: 08/03/21 11:42 [facility] [id number]) Therapy Assessment Status Assessment Status Assessment Status Evaluation Evaluation Information Problem Diagnosis cervicalgia w/ right shoulder pain Onset 3 months ago Cause no injury Additional Evaluation Detail The patient began having pain at chest then neck pain that radiated into the right shoulder/upper arm. The patient took advil but pain kept getting worse, with increased pain with arm movements. The pain is constant and is worse after working. 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 The patient is raising a 3 y/o granddaughter also. Subjective Information Patient reports sleep affected Query Text:As Reported By Patient/ by pain also, getting 25% Family less sleep and needs pain meds to accomplish sleep. Diagnostic Tests X-Rays For This Problem Yes: neck/chest ok;shoulder OA Other Tests For This Problem Yes: heart tests at ER; results clear Pain Assessment Timing of Pain Assessment Timing of Pain Assessment Assessment Pain Scale Pain Scale Used Numeric (1 - 10) Self Report Pain Assessment Chest Reported Pain Level 1 Pain Description Tightness Other Pain Description chest pain after work 1-2 Pain Aggravating Factors None Right Shoulder(s) Reported Pain Level 3 Pain Description Heavy,Tingling Radicular Pain Location tingling goes to fingers; shoulder pain after work 8 Pain Frequency Acute Other Pain Description pain worse after day of work Neck Reported Pain Level
--- NOTE | 2021-08-11 10:18 | PCPTNOTE ---
Patient did not show up for scheduled appointment this date. Called & and to leave a message.
--- NOTE | 2021-08-14 10:12 | PCPTNOTE ---
Patient's had to cancelled scheduled appointment this date due to getting a phone that her granddaughter was throwing up at daycare & had to leave to go pick her up.
--- NOTE | 2021-08-26 16:36 | PTOPEVAL ---
PHYSICAL THERAPY EVALUATION Thank you for referring Lucinda Rapp to [facility].?Lucinda was evaluated for the dx of latosha hip pain/bursitis. The patient is scheduled to be seen for therapy?2 x/week for 4 weeks. Please review, sign, date and return this plan of care GUSTABO. I agree with and certify that the following plan of care is medically necessary. Referring Physician Date Attending Provider: DO Yue SchneiderPT Outpatient Evaluation Start: 08/03/21 10:53 Freq: Status: Active Protocol: Document 08/26/21 10:03 [facility] (Rec: 08/26/21 10:42 [facility] [id number]) Therapy Assessment Status Assessment Status Assessment Status Evaluation Evaluation Information Problem Diagnosis latosha. hip pain Onset 7 weeks ago Cause no injury Additional Evaluation Detail The patient reports having pain at her hip starting about 6-7 weeks ago. Denies injury. The patient has hip while standing/walking that gets worse as the day goes on; then will hurt even at rest in the pm. The patient lays on her left side and will wake due to hip pain frequently. The pain will create a limp and the am is usually better than pm. Pt takes Advil daily but it is for full body pain, and it helps the hip pain a little. Diagnostic Tests X-Rays For This Problem No Pain Assessment Timing of Pain Assessment Timing of Pain Assessment Assessment Pain Scale Pain Scale Used Numeric (1 - 10) Self Report Pain Assessment Bilateral Hip(s) Reported Pain Level 2 Pain Description Aching Other Pain Description with work activities pain is 5 and up to 10 at times Pain Aggravating Factors Walking,Weight Bearing/ Standing Pain Behaviors Limping Pain Score Pain Score 2: Self Report Interventions Used Interventions Used By Clinicians Education Pain Relief Interventions Used By Heat,Medication,TENS Patient Other Alleviating Interventions hydrocodone or advil Lower Extremity Muscle Strength Testing General Lower Extremity Strength Reason Not Measured WNL/Left,WNL/Right Muscle Length Testing Muscle Length Testing Two-Joint Hip Flexor Shortened Muscles Short (L) Rectus Femoris,Short (R) Ilial Tib Band,Short (L)
--- NOTE | 2021-08-26 16:38 | PCPTNOTE ---
PHYSICAL THERAPY DISCHARGE Attending Provider: Redd Toribio DO Patient:Lucinda Rapp Date of :1975 Patient plans to not return for any further treatments for her neck/shoulders after 08/18/2021 appt, reports she is done with therapy for the neck, therefore she will be discharged at this time. Patient?s initial visit was on 08/03/2021 10:45 and she had a total of 5 visits. The goals have been partially met. Thank you for referring this patient to [facility]. Please review, sign, date and return this discharge summary GUSTABO. I have been updated about the patient's current status and I agree with discharge from the above service at this time. Referring Physician Date
--- NOTE | 2021-08-31 12:12 | PCPTNOTE ---
Patient did not show up for scheduled appointment this date. Called left voicemail about missed appointment and informed Pt of upcoming appointment.
--- NOTE | 2021-09-15 10:45 | PCPTNOTE ---
Patient did not show up for scheduled appointment this date. Called and left voicemail about missed appointment. Reminded Pt of upcoming appointment on 09/17/21 @ 10:00.
--- NOTE | 2021-09-17 10:40 | PCPTNOTE ---
Patient did not show up for scheduled appointment this date; called and left voicemail on reminder for next appointment.
--- NOTE | 2021-09-25 10:58 | PCPTNOTE ---
Patient did not show up for scheduled appointment this date. Called pt, unavailable and message was left in regards to follow up. Pt currently has no further appts scheduled. Will await return call from pt, and DC if no return call received in a week.
--- NOTE | 2021-10-05 13:20 | PCPTNOTE ---
PHYSICAL THERAPY DISCHARGE Attending Provider: Redd Toribio DO Patient:Lucinda Rapp Date of :1975 Patient has not returned for any further treatments since 09/25/2021, therefore she will be discharged at this time. Patient?s initial visit was on 08/03/2021 10:45 and she had a total of 5 visits. The goals have been partially met. Thank you for referring this patient to [facility]. Please review, sign, date and return this discharge summary GUSTABO. I have been updated about the patient's current status and I agree with discharge from the above service at this time. Referring Physician Date
== END 2021-10-06 09:29 | disposition home or self-care (01) ==
LOC: ANHPT 10:00
PROVIDERS: PCP Internal Medicine; Visit Provider Internal Medicine
DX: M54.2 Cervicalgia (principal); M25.519 Pain in unspecified shoulder
CPT/HCPCS: 97012; 97110; 97140; 97162

== ENCOUNTER → 2021-10-21 16:20 | Outpatient (CLI) | payer OTHER, SELFPAY ==
--- NOTE | ~2021-10-21 | MR_ITS ---
EXAMINATION: MR cervical spine wo con DATE: 10/21/2021 17:32 INDICATION: Cervical radiculopathy. Neck pain. TECHNIQUE: Magnetic resonance imaging (MRI) of the cervical spine was performed without intravenous c ontrast. Sequences included sagittal T2-weighted FSE, sagittal STIR FSE, sagittal T1-weighted FSE, ax ial MERGE, and axial T2-weighted FSE. COMPARISON: None FINDINGS: There is kyphosis of cervical spine. Vertebral body heights are normal. There is mildly dec reased disc height at C5-C6. The spinal cord signal intensity is normal. The following disc levels ar e specifically discussed: C2-C3: The disc does not extend beyond the endplate margin. There is no uncovertebral joint osteoarth ritis. There is mild left facet joint osteoarthritis. There is no neural foraminal stenosis. There is no central canal stenosis. C3-C4: There is a central protrusion. There is no uncovertebral joint osteoarthritis. There is mild b ilateral facet joint osteoarthritis. There is mild left neural foraminal stenosis. There is mild cent ral canal stenosis. C4-C5: There is a central protrusion. There is no uncovertebral joint osteoarthritis. There is no fac et joint osteoarthritis. There is no neural foraminal stenosis. There is mild central canal stenosis. C5-C6: The disc is bulging. There is moderate bilateral uncovertebral joint osteoarthritis. There is no facet joint osteoarthritis. There is mild left neural foraminal stenosis. There is mild central ca nal stenosis. There is moderate stenosis of left lateral recess. C6-C7: The disc is bulging. There is mild left uncovertebral joint osteoarthritis. There is mild left facet joint osteoarthritis. There is mild left neural foraminal stenosis. There is mild central rika l stenosis. C7-T1: The disc does not extend beyond the endplate margin. There is no uncovertebral joint osteoarth ritis. There is mild right and moderate left facet joint osteoarthritis. There is mild left neural fo raminal stenosis. There is no central canal stenosis. IMPRESSION: 1. Mild cervical spondylosis. Reviewed, dictated and finalized at location A. ICE ADMINISTRATOR
== END ==
PROVIDERS: PCP Internal Medicine; Visit Provider Nurse Practitioner Adult Health
DX: M47.812 Spondylosis without myelopathy or radiculopathy, cervical region (principal)
CPT/HCPCS: 72141

== ENCOUNTER 2021-11-18 14:49 | Emergency (ER) | payer OTHER, SELFPAY ==
--- NOTE | ~2021-11-18 | XR_ITS ---
XR chest 1V portable DATE: 11/19/2021 00:28 INDICATION: Central chest pain. Hypertension. History of bilateral infarction and coronary artery maricruz nt. TECHNIQUE: Portable upright AP chest on 11/19/2021 at 0025 hours COMPARISON: 07/03/2021 PA and lateral chest FINDINGS: Normal heart size. No hilar or mediastinal enlargement. There is chronic mild elevation of the right leaf of the diaphragm. No pulmonary infiltrate or consolidation, pleural effusion or pulmonary vascular congestion or pneumo thorax is evident. Included skeletal structures are unremarkable. IMPRESSION: No active cardiopulmonary disease Reviewed, dictated and finalized at location A. [place]
--- NOTE | 2021-11-18 14:51 | ECG_ITS ---
Measurements Intervals [place] Rate: 80 P: 48 PA: 132 QRS: 25 QRSD: 108 T: 10 QT: 372 QTc: 431 Interpretive Statements SINUS RHYTHM POSSIBLE LEFT ATRIAL ENLARGEMENT INCOMPLETE RIGHT BUNDLE BRANCH BLOCK CONSIDER INFERIOR INFARCT, AGE INDETERMINATE ABNORMAL ECG Electronically Signed On 11-18-2021 15:02:27 URANIUM PROCESSING SUPERVISOR by Austen Kauffman D.O.
[2021-11-18 15:18] VITALS: BP 155/98; PULSE 78; RESP 16; TEMP 36.7; O2SAT 97
[2021-11-18 19:13] VITALS: BP 163/100; PULSE 80; TEMP 36.3; O2SAT 96
[2021-11-18 22:21] VITALS: BP 144/96; PULSE 91; O2SAT 95
[2021-11-19 00:59] LABS: Basophils Absolute Auto 0.1 K/mm3 (0.0-0.1); Basophils Percent Auto 0.9 % (0.2-1.2); Eosinophils Absolute Auto 0.1 K/mm3 (0-0.3); Hematocrit 39.9 % (37.0-47.0); Hemoglobin 13.3 g/dL (12.0-15.0); Immature Granulocyte Absolute 0.02 K/mm3 (0.00-0.031); Immature Granulocyte Percent A 0.3 % (0-0.5); Lymphocytes Absolute Auto 2.14 K/mm3 (0.9-3.2); Lymphocytes Percent Auto 30.5 % (18.3-44.2); Mean Corpuscular HGB Conc 33.3 g/dl (32-36); Mean Corpuscular Volume 87.1 fl (80-100); Mean Platelet Volume 9.6 fl (7.4-10.4); Monocytes Absolute Auto 0.5 K/mm3 (0.1-0.6); Neutrophils Absolute Auto 4.2 K/mm3 (1.3-6.7); Neutrophils Percent Auto 59.3 % (45.5-73.1); Platelet Count Result 229 k/mm3 (150-375); Red Blood Count 4.58 M/mm3 (4.2-5.4); Red Cell Distribution Width 13.1 % (11.5-14.5)
[2021-11-19 01:12] VITALS: BP 147/86; PULSE 74; RESP 16; O2SAT 97
[2021-11-19 01:18] LABS: Alanine Aminotransferase 23 U/L (4-35); Albumin Level 4.4 g/dL (3.5-5.1); Alkaline Phosphatase 98 U/L (38-126); Anion Gap 6 mmol/L (8-16); Aspartate Amino Transferase 26 U/L (14-36); Bilirubin,Total 0.9 mg/dL (0.2-1.3); Blood Urea Nitrogen 14 mg/dL (7-17); Carbon Dioxide 29 mmol/L (22-30); Chloride 101 mmol/L (98-107); Estimated CRCL calculation 105 ml/min; Estimated Glomerular Filt Rate > 60; Glucose 93 mg/dL (65-110); Lipase 33 U/L (23-300); Potassium 3.6 mmol/L (3.4-5.0); Sodium 136 mmol/L (137-145)
--- NOTE | 2021-11-19 01:28 | ED.GENADULT ---
HPI - General Adult General Chief complaint: Nausea/Vomiting/Diarrhea Stated complaint: ELEVATED BP,SOTO,CHEST PAIN Time Seen by Provider: 11/19/21 00:16 Source: patient and family Mode of arrival: ambulatory Limitations: no limitations History of Present Illness HPI narrative: 46-year-old with a history of hypertension, hyperlipidemia, GERD , CAD here with complaints of midsternal chest pain radiating into her back for last 3 days. Patient states since the last 3 days her blood pressure has been elevated. She denies any difficulty breathing, nausea or vomiting. Also complains of headache for last 1 day. Onset (ago): day(s) (3) Location: chest Radiation: abdomen Severity: moderate Quality: aching Pain Consistency: constant Relieving factors: none Exacerbating factors: none Associated symptoms: headaches Related Data Home Medications Medication Instructions Recorded Confirmed aspirin 81 mg tablet,delayed 81 mg PO DAILY 12/03/19 09/07/21 release atorvastatin 40 mg tablet 40 mg PO DAILY 12/03/19 09/07/21 losartan 25 mg tablet 25 mg PO DAILY 12/03/19 09/07/21 nitroglycerin 0.4 mg SUBLINGUAL PRN 11/16/20 09/07/21 metoprolol tartrate 07/04/21 09/07/21 Allergies Allergy/AdvReac Type Severity Reaction Status Date / Time No Known Allergies Allergy Verified 11/19/21 01:16 Review of Systems Review of Systems: All systems reviewed & are unremarkable except as noted in HPI and below Constitutional: Constitutional: Reports no additional constitutional complaints Eyes: Eyes: Reports no additional eye complaints ENT: Reports system reviewed and no additional complaints, except as documented Cardiovascular: Cardiovascular: Reports as per HPI Respiratory: Respiratory: Reports no additional respiratory complaints Gastrointestinal: Gastrointestinal: Reports no additional gastrointestinal complaints Musculoskeletal: Musculoskeletal: Reports no additional musculoskeletal complaints [facility] Past Medical History Medical History Body mass index (bmi) 39.0-39.9, adult (04/13/19) Coronary artery disease involving [place] coronary artery of [place] heart Stent to mid RCA Coronary stent occlusion Depression 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 Family History Family History Mother Hypertension Sibling Family history of rheumatoid arthritis Other Asthma Social History Social History Social History: The patient lives with her significant other of approximately 20 years. She has 3 children. Her daughter is a durable power bankruptcy attorney for healthcare. The patient is a full code. 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 The patient does not use any alcohol marijuana or illicit drugs. The patient used to smoke she quit about 12 years ago. Smoking packs per day: 0.5 Smoking cigarettes per day: 10.0 Years smoked: 15 Smoking pack-years: 7.50 Smoking status: Former smoker Tobacco type: cigarettes Second hand tobacco smoke exposure: No Alcohol intake: never Substance use: never Substance use type: does not use Gender identity (if verbalized by the patient): Female Sexual Orientation (if Verbalized by the Patient): Straight or Heterosexual Spiritual care concerns: No Exam Narrative: GENERAL: Well-appearing, well-nourished, and in no acute distress. HEAD: Normocephalic, atraumatic. EYES: PERRLA and EO
[2021-11-19 01:29] LABS: Troponin I < 0.012 ng/mL (0.000-0.034)
[2021-11-19] MEDS: BELLADONNA ALK/PHENOB ELIX 10 ML, MAG HYDROX/ALUMINUM HYD/SIMETH 30 ML, LIDOCAINE HCL 2... PO (01:35)
[2021-11-19] MEDS: KETOROLAC 30 MG/ML VIAL (*BKC) IM (01:45)
[2021-11-19 02:15] VITALS: BP 143/87; PULSE 72; RESP 18; O2SAT 98
== END 2021-11-19 02:15 | disposition home or self-care (01) ==
PROVIDERS: Emergency Provider Family Medicine; PCP Internal Medicine
DX: R07.89 Other chest pain (principal); R51.9 Headache, unspecified; Z87.891 Personal history of nicotine dependence; I10 Essential (primary) hypertension; K21.9 Gastro-esophageal reflux disease without esophagitis; E78.5 Hyperlipidemia, unspecified; I25.10 Atherosclerotic heart disease of native coronary artery without angina pectoris; Z98.61 Coronary angioplasty status
CPT/HCPCS: 36415; 71045; 80053; 83690; 84484; 85025; 93005; 96372; 99284; A9270; J1885

== ENCOUNTER → 2022-01-22 08:29 | Outpatient (CLI) | payer OTHER, SELFPAY ==
[2022-01-22 13:03] LABS: Influenza A QL RT-PCR Negative (Negative); Influenza B QL RT-PCR Negative (Negative); SARS-CoV-2 RNA PCR Negative
== END ==
PROVIDERS: PCP Internal Medicine; Visit Provider Nurse Practitioner
DX: R09.89 Other specified symptoms and signs involving the circulatory and respiratory systems (principal); Z20.822 Contact with and (suspected) exposure to COVID-19
CPT/HCPCS: 87502; C9803; U0003; U0005

== ENCOUNTER 2022-01-29 11:49 | Outpatient (CLI) | payer OTHER, SELFPAY ==
[2022-01-29 12:22] LABS: Alanine Aminotransferase 17 U/L (4-35); Albumin Level 4.1 g/dL (3.5-5.1); Alkaline Phosphatase 94 U/L (38-126); Anion Gap 4 mmol/L (8-16); Aspartate Amino Transferase 23 U/L (14-36); Bilirubin,Total 0.8 mg/dL (0.2-1.3); Blood Urea Nitrogen 16 mg/dL (7-17); CRP < 0.5 mg/dL (<1.0); Calcium 8.6 mg/dL (8.4-10.2); Carbon Dioxide 30 mmol/L (22-30); Chloride 105 mmol/L (98-107); Cholesterol 157 mg/dL (0-200); Creatine Kinase 66 U/L (30-135); Estimated Glomerular Filt Rate > 60; Glucose 107 mg/dL (65-110); HDL Direct 38 mg/dL; Potassium 3.9 mmol/L (3.4-5.0); Sodium 139 mmol/L (137-145); Triglycerides 118 mg/dL (<150)
[2022-01-29 12:31] LABS: Hemoglobin A1C 5.4 % (<5.7); LDL Cholesterol Direct 89 mg/dL
[2022-01-29 13:15] LABS: Vitamin D 25 Hydroxy 30.6 ng/mL
[2022-01-29 13:30] LABS: Erythrocyte Sedimentation Rate 38 mm/hr (0-20)
== END 2022-01-29 11:50 | disposition home or self-care (01) ==
LOC: ANHLAB 11:50
PROVIDERS: PCP Internal Medicine; Visit Provider Nurse Practitioner
DX: M79.10 Myalgia, unspecified site (principal); E78.5 Hyperlipidemia, unspecified; R53.83 Other fatigue; Z79.899 Other long term (current) drug therapy; E55.9 Vitamin D deficiency, unspecified; Z68.41 Body mass index [BMI] 40.0-44.9, adult
CPT/HCPCS: 36415; 80053; 80061; 82306; 82550; 83036; 84443; 85652; 86140

== ENCOUNTER 2022-05-12 13:13 | Observation (INO) | payer OTHER, SELFPAY ==
[2022-05-12] VITALS (31 sets, daily range): BP systolic 116–143; BP diastolic 55–84; PULSE 75–90; RESP 12–25; TEMP 36.3–37.3; O2SAT 95–100; BMI 45.6
--- NOTE | ~2022-05-12 | XR_ITS ---
EXAMINATION: XR chest 2V Exam Date/Time: 05/12/2022 14:00 CDT HISTORY: chest pain Comparison: 11/19/2021. RESULT: Lines, tubes, and devices: Cholecystectomy clips. Lungs and pleura: Clear. Cardiomediastinal silhouette: Stable cardiomediastinal silhouette. Other: No acute osseous or upper abdominal finding. IMPRESSION: No acute cardiopulmonary process. Reviewed, dictated and finalized at location K.
--- NOTE | ~2022-05-12 | CT_ITS ---
EXAMINATION: CT abdomen pelvis w con INDICATION: Epigastric abdominal pain TECHNIQUE: Computed tomographic images of the abdomen and pelvis were obtained after the administrati on of 100 cc of Omnipaque 300 intravenous contrast. The dose-length product (DLP) was 1410.15 mGy-cm. Automated exposure control and iterative reconstruction technique were employed. COMPARISON: 05/11/2013 FINDINGS: Minimal dependent atelectasis is present in the lung bases. The heart size is normal. The g allbladder is surgically absent. There is mild enlargement of the common bile duct and central intrah epatic ducts which is likely due to post cholecystectomy state. The liver, spleen, pancreas, and adre nal glands are normal. A 4 mm hypoattenuating lesion of the right kidney is too small to characterize but likely represents a cyst. The left kidney is unremarkable. No pathologically enlarged abdominal or pelvic lymph nodes are identified. There is no free intraperitoneal gas or evidence of bowel obstr uction. There are bilateral L5 pars defects with grade 1 anterolisthesis of L5 on S1. The small fat-c ontaining umbilical hernia is noted. IMPRESSION: 1. No CT correlate for the patient's symptoms. Reviewed, dictated and finalized at location F.
--- NOTE | 2022-05-12 13:15 | ECG_ITS ---
Measurements Intervals [place] Rate: 81 P: 47 TN: 167 QRS: 18 QRSD: 118 T: 16 QT: 372 QTc: 432 Interpretive Statements SINUS RHYTHM POSSIBLE LEFT ATRIAL ENLARGEMENT [-0.1mV P WAVE IN V1/V2] INCOMPLETE RIGHT BUNDLE BRANCH BLOCK COMPARED TO ECG 11/18/2021 14:56:33 INTRAVENTRICULAR CONDUCTION DELAY NOW PRESENT Electronically Signed On 05-12-2022 22:47:44 CDT by Suzi Shane M.D.
[2022-05-12 14:06] LABS: Prothrombin Time 13.1 Seconds (11.1-14.7)
[2022-05-12 14:07] LABS: Partial Thromboplastin Time 30.9 SECONDS (22.3-36.8)
[2022-05-12 14:08] LABS: Basophils Percent Auto 0.5 % (0.2-1.2); Eosinophils Absolute Auto 0.1 K/mm3 (0-0.3); Eosinophils Percent Auto 1.5 % (0-4.4); Hematocrit 36.3 % (37.0-47.0); Hemoglobin 11.9 g/dL (12.0-15.0); Immature Granulocyte Absolute 0.02 K/mm3 (0.00-0.031); Immature Granulocyte Percent A 0.3 % (0-0.5); Lymphocytes Absolute Auto 0.25 K/mm3 (0.9-3.2); Lymphocytes Percent Auto 4.3 % (18.3-44.2); Mean Corpuscular HGB Conc 32.8 g/dl (32-36); Mean Corpuscular Hemoglobin 28.1 pg (26-34); Mean Corpuscular Volume 85.6 fl (80-100); Monocytes Absolute Auto 0.4 K/mm3 (0.1-0.6); Neutrophils Absolute Auto 5.1 K/mm3 (1.3-6.7); Neutrophils Percent Auto 87.4 % (45.5-73.1); Platelet Count Result 225 k/mm3 (150-375); Red Blood Count 4.24 M/mm3 (4.2-5.4); Red Cell Distribution Width 13.2 % (11.5-14.5); White Blood Count 5.9 K/mm3 (4.5-10.0)
[2022-05-12 14:13] LABS: Alanine Aminotransferase 86 U/L (6-35); Albumin Level 4.2 g/dL (3.5-5.1); Alkaline Phosphatase 116 U/L (38-126); Anion Gap 7 mmol/L (8-16); Aspartate Amino Transferase 65 U/L (14-36); Bilirubin,Total 0.9 mg/dL (0.2-1.3); Blood Urea Nitrogen 16 mg/dL (7-17); Calcium 8.8 mg/dL (8.4-10.2); Carbon Dioxide 26 mmol/L (22-30); Chloride 101 mmol/L (98-107); Estimated CRCL calculation 95 ml/min; Estimated Glomerular Filt Rate > 60; Glucose 89 mg/dL (65-110); Lipase 50 U/L (23-300); Sodium 134 mmol/L (137-145)
[2022-05-12 14:24] LABS: Troponin I < 0.012 ng/mL (0.000-0.034)
--- NOTE | 2022-05-12 14:48 | ED.CHESTPAIN ---
HPI - Chest Pain General Chief Complaint: Chest Pain <JULIO Gonslaes Last Filed: 05/12/22 19:05> Stated Complaint: chest pain <JULIO Gonsales Last Filed: 05/12/22 19:05> Time Seen by Provider: 05/12/22 14:23 <JULIO Gonsales Last Filed: 05/12/22 19:05> History of Present Illness HPI narrative: Patient is a 46-year-old female with a history of PCI with stent to RCA (2018) here for evaluation of chest pain for the past day. Patient describes her pain as a tightness sensation in the center of her chest. It developed last night while she was at rest, and eased up after she took a nitroglycerin. She states the pain returned this morning, and has been unrelieved after aspirin and nitroglycerin. Additionally reports some diaphoresis, nausea and some bilateral arm heaviness, which she states is similar to her presentation with her previous ND. Denies shortness of breath, abdominal pain, diarrhea, fevers, chills. <JULIO Gonsales Last Filed: 05/12/22 19:05> Related Data Home Medications: Home Medications Medication Instructions Recorded Confirmed aspirin 81 mg tablet,delayed 81 mg PO DAILY 12/03/19 05/12/22 release (Aspir-) metoprolol tartrate 25 mg tablet 25 mg PO DAILY 07/04/21 05/12/22 Aleve Cold and Sinus 1 tablet BYMOUTH PRN sinus headache 05/12/22 05/12/22 Tylenol Extra Strength 2 tablet PO BID 05/12/22 05/12/22 cyclobenzaprine 5 mg tablet 5 mg PO QHS 05/12/22 05/12/22 diclofenac sodium 75 mg 75 mg PO BID 05/12/22 05/12/22 tablet,delayed release omeprazole 40 mg capsule,delayed 40 mg PO DAILY 05/12/22 05/12/22 release tramadol 50 mg tablet 50 mg PO TID Pain 05/12/22 05/12/22 <JULIO Gonsales Last Filed: 05/12/22 19:05> Allergies/Adverse Reactions: Allergies Allergy/AdvReac Type Severity Reaction Status Date / Time No Known Allergies Allergy Verified 05/14/22 12:29 <Marilyn Murguia PA-C - Last Filed: 05/12/22 19:05> Review of Systems Review of Systems: Gen: Denies fevers or chills Eyes: Denies eye pain or visual change ENT: Denies congestion Respiratory: Denies shortness of breath or cough CV: Reports chest pain, diaphoresis. GI: Denies abdominal pain nausea, emesis or diarrhea denies burning, urgency, frequency or hematuria Musculoskeletal: Denies back pain or muscle pain Neuro: Denies numbness, tingling, weakness or focal weakness Skin: Denies rash Except as documented, all other systems reviewed and negative <JULIO Gonsales Last Filed: 05/12/22 19:05> [facility] Past Medical History Medical History: Medical History Coronary artery disease (2018) Status post stent to the RCA. Coronary artery disease involving [place] coronary artery of [place] heart Stent to mid RCA Coronary stent occlusion Depression Essential (primary) hypertension Gastroesophageal reflux disease Obstructive sleep apnea Pure hypercholesterolemia ST elevation myocardial infarction (STEMI) of inferior wall Statin intolerance <JULIO Gonsales Last Filed: 05/12/22 19:05> Surgical History Surgical History: Surgical History History of cholecystectomy History of cryosurgery History of dilation and curettage History of partial hysterectomy History of tubal ligation Status post removal of thyroid nodule Stented coronary artery mid RCA. <Marilyn Murguia PA-C - Last Filed: 05/12/22 19:05> Family History Family History: Family History Mother Hypertension Sibling Family history of rheumatoid arthritis Father Hypertension Other Asthma Congestive heart failure <JULIO Gonsales Last Filed: 05/12/22 19:05> Social History Social History: Social History (Reviewed 05/13/22 @ 15:48 b
[2022-05-12] MEDS: ASPIRIN 81 MG CHEWABLE TABLET 324 MG PO (14:57)
[2022-05-12] MEDS: MORPHINE SULFATE (*CRX) 4 MG/ML INJ IV PUSH (16:23)
[2022-05-12 16:39] LABS: Troponin I < 0.012 ng/mL (0.000-0.034)
--- NOTE | 2022-05-12 16:45 | PM.IMHP ---
H&P: HPI History of Present Illness Date/Time: 05/12/22 16:45 Chief Complaint: Chest pain. Narrative: This is a 46-year-old female with history of coronary artery disease, inferior ST-elevation myocardial infarction in 2018 hypertension, hyperlipidemia, and GERD who presented to the emergency department for evaluation of chest pain. 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 The pain is described as a tightness sensation associated with heaviness in the arms, nausea, sweats, and shortness of breath. She had a similar episode last night and her symptoms eased up with nitroglycerin though unfortunately she continues to have this pain despite receiving nitroglycerin x3 today. Her initial troponin was negative an her EKG did not show any acute ST segment changes. Given her history I was asked to admit the patient overnight to rule out acute coronary syndrome. Currently she continues to have discomfort in the epigastric region, not radiating at this time. With further questioning she does endorse intermittent abdominal bloating and belching. She has a history of GERD but states that this is somewhat different than symptoms she will get with indigestion. She takes a baby aspirin daily and on occasion will take Advil or the like, but certainly not daily. She does take diclofenac twice daily however. She drinks at least 30 oz of coffee a day and denies significant alcohol use. She does report increase in stress recently. She denies melena and hematochezia. She also denies syncope, presyncope, racing heart, palpitations, orthopnea, paroxysmal nocturnal dyspnea, edema, vomiting, and diarrhea. Review of Systems Review of Systems: Twelve systems were reviewed and are negative except for as per HPI. [facility] Past Medical History Medical History (Updated 05/12/22 @ 21:38 by Marcy Marsh PA-C) Coronary artery disease (2018) Status post stent to the RCA. Coronary artery disease involving [place] coronary artery of [place] heart Stent to mid RCA Coronary stent occlusion Depression Essential (primary) hypertension Gastroesophageal reflux disease Obstructive sleep apnea Pure hypercholesterolemia ST elevation myocardial infarction (STEMI) of inferior wall Surgical History Surgical History (Updated 05/12/22 @ 21:32 by Marcy Marsh PA-C) History of cholecystectomy History of cryosurgery History of dilation and curettage History of partial hysterectomy History of tubal ligation Status post removal of thyroid nodule Stented coronary artery mid RCA. Family History Family History Mother Hypertension Sibling Family history of rheumatoid arthritis Father Hypertension Other Asthma Congestive heart failure Social History Social History (Updated 05/12/22 @ 21:34 by Marcy Marsh PA-C) Social History: The patient lives with her significant other of approximately 20 years. She has 3 children. 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 Smoked proximally half a pack of cigarettes a day for 15 years and quit in 2009. No alcohol or illicit substance use. She designates her daughter, Chula Esquivel, as her surrogate decision maker and she wishes to be a full code. Spiritual care concerns: No Meds Home Medications and Allergies Home Medications Medication Instructions Recorded Confirmed Type aspirin 81 mg tablet,delayed 81 mg PO DAILY 12/03/19 05/12/22 History release (Aspir-) metoprolol tartrate 25 mg tablet 25 mg PO DAILY 07/04/21 05/12/22 History duloxetine 60 mg capsule,delayed 60 mg PO DAILY #90 caps 11/12/21 05/12/22 Rx release (Cymbalta) nitroglycerin 0.4 mg sublingual 0.4 mg sublingual PRN #25 tabs 11/20/21 05/12/22 Rx tablet pramipexole 0.25 mg tablet 0.25 mg PO QHS restless legs #30 01/28/22 05/12/22 Rx tabs losartan 50 mg tablet 100
[2022-05-12] MEDS: BELLADONNA ALK/PHENOB ELIX 10 ML, MAG HYDROX/ALUMINUM HYD/SIMETH 30 ML, LIDOCAINE HCL 2... PO (18:17)
--- NOTE | 2022-05-12 18:55 | ADMGEN ---
This patient, Lucinda Rapp, was admitted to IMU Room 200-01 @ 1850. Patient/family oriented to hospital policies and general routines including ID bracelet, bed and alarms, visiting hours, pain management, procedures, bathroom and other care routines, personal items, smoking policy, room service/diet, and visiting hours. Information on how to activate the Rapid Response Team has been discussed. Patient/Family are encouraged to report perceived risks to care and to ask questions if they do not understand what they are told or what they should do.
[2022-05-12 19:36] LABS: Troponin I < 0.012 ng/mL (0.000-0.034)
[2022-05-12] MEDS: CYCLOBENZAPRINE HCL 5 MG TABLET PO (23:06)
[2022-05-12] MEDS: PANTOPRAZOLE SODIUM IV 40 MG VIAL IV PUSH (23:06)
[2022-05-12] MEDS: PRAMIPEXOLE 0.25 MG TABLET PO (23:06)
[2022-05-12] MEDS: traMADol HCL (*CRX) 50 MG TABLET PO (23:07)
[2022-05-13] VITALS (17 sets, daily range): BP systolic 122–144; BP diastolic 60–91; PULSE 74–98; RESP 16–24; TEMP 36.6–37.6; O2SAT 91–97
[2022-05-13] MEDS: METOPROLOL TARTRATE 25 MG TABLET PO ×3 (00:47→20:26)
[2022-05-13 05:01] LABS: Hematocrit 34.4 % (37.0-47.0); Mean Corpuscular Hemoglobin 27.7 pg (26-34); Mean Corpuscular Volume 86.6 fl (80-100); Mean Platelet Volume 10.1 fl (7.4-10.4); Platelet Count Result 184 k/mm3 (150-375); Red Blood Count 3.97 M/mm3 (4.2-5.4); Red Cell Distribution Width 13.6 % (11.5-14.5); White Blood Count 3.8 K/mm3 (4.5-10.0)
[2022-05-13 05:16] LABS: Anion Gap 3 mmol/L (8-16); Blood Urea Nitrogen 14 mg/dL (7-17); Calcium 8.1 mg/dL (8.4-10.2); Carbon Dioxide 30 mmol/L (22-30); Chloride 101 mmol/L (98-107); Estimated CRCL calculation 92 ml/min; Estimated Glomerular Filt Rate > 60; Glucose 97 mg/dL (65-110); Magnesium 1.8 mg/dL (1.6-2.3); Potassium 3.8 mmol/L (3.4-5.0); Sodium 134 mmol/L (137-145)
[2022-05-13] MEDS: FLUTICASONE PROPIONATE 0.05% NA SPR 16 GM BTL (*BKC) 1 SPRAY NASAL ×2 (05:24→20:27)
[2022-05-13] MEDS: traMADol HCL (*CRX) 50 MG TABLET PO ×2 (08:16→22:27)
[2022-05-13] MEDS: ASPIRIN 81 MG ENTERIC TABLET PO (08:18)
[2022-05-13] MEDS: PANTOPRAZOLE SODIUM IV 40 MG VIAL IV PUSH ×2 (08:18→20:26)
[2022-05-13] MEDS: LOSARTAN POTASSIUM 50 MG TABLET 100 MG PO (08:18)
[2022-05-13] MEDS: DULoxetine HCL 60 MG CAPSULE.DR PO (08:18)
--- NOTE | 2022-05-13 09:00 | PM.IMPN ---
Progress Note: A&P Assessment and Plan (1) Atypical chest pain: Code(s): R07.89 - Other chest pain Status: Acute Assessment and Plan: Troponins negative x3 EKG with no significant changes cardiology consulted no cardiac workup recommended GI consulted seems to be more like PUD EGD for tomorrow (2) Epigastric abdominal pain: Code(s): R10.13 - Epigastric pain Status: Acute Assessment and Plan: probably related to PUD Has been taking NSAID until the last couple of weeks Probably has an ulcer CT did not show any reason for the pain EGD in the am Might need an MRCP if no ulcer present see above (3) Coronary artery disease: Onset Date: 2017 Code(s): I25.10 - Atherosclerotic heart disease of [place] coronary artery without angina pectoris Status: Acute Assessment and Plan: continue aspirin check lipid panel a.m. probably need to add a statin (4) Essential (primary) hypertension: Code(s): I10 - Essential (primary) hypertension Status: Chronic Assessment and Plan: current blood pressure 136/60 continue losartan 100 mg p.o. daily, continue metoprolol 25 mg p.o. daily trend blood pressure adjust therapy as indicated (5) Obstructive sleep apnea: Code(s): G47.33 - Obstructive sleep apnea (adult) (pediatric) Status: Acute Assessment and Plan: continue home CPAP for settings from home (6) Gastroesophageal reflux disease: Code(s): K21.9 - Gastro-esophageal reflux disease without esophagitis Status: Acute Assessment and Plan: continue Protonix IV b.i.d. GI cocktail given the ED pain seems to be resolved EGD schedule the morning GI on board thank you for your help (7) Transaminitis: Code(s): R74.01 - Elevation of levels of liver transaminase levels Status: Acute Assessment and Plan: liver enzymes elevated and trending up current AST/ ALT 161/202 GI on board EGD scheduled for tomorrow consider MRCP Time Spent With Patient Time with patient: Greater than 35 minutes Subjective Date/time seen: 05/13/22899 Interval history: 05/13/22899 Patient was on BiPAP on and went in to visit her. Cardiology was consulted and determined that this was not an etiology of cardiac. Patient denies any pain currently. Patient does states that her pain was epigastric and never really left. She also stated that she was on NSAIDs until about 2 weeks ago. Patient also states that she has been taking Protonix and she has been taking it regularly. She denies any chest pain, nausea, vomiting, diarrhea, constipation weakness or fatigue. 05/12/22? 16:45 This is a 46-year-old female with history of coronary artery disease, inferior ST-elevation myocardial infarction in 2018 hypertension, hyperlipidemia, and GERD who presented to the emergency department for evaluation of chest pain. 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 The pain is described as a tightness sensation associated with heaviness in the arms, nausea, sweats, and shortness of breath. She had a similar episode last night and her symptoms eased up with nitroglycerin though unfortunately she continues to have this pain despite receiving nitroglycerin x3 today. Her initial troponin was negative an her EKG did not show any acute ST segment changes. Given her history I was asked to admit the patient overnight to rule out acute coronary syndrome. Currently she continues to have discomfort in the epigastric region, not radiating at this time. With further questioning she does endorse intermittent abdominal bloating and belching. She has a history of GERD but states that this is somewhat different than symptoms she
--- NOTE | 2022-05-13 09:00 | P.PNIM_ITS ---
Progress Note: A&P Assessment and Plan (1) Atypical chest pain: Code(s): R07.89 - Other chest pain Status: Acute Assessment and Plan: * Troponins negative x3 * EKG with no significant changes * cardiology consulted * no cardiac workup recommended * GI consulted * seems to be more like PUD * EGD for tomorrow (2) Epigastric abdominal pain: Code(s): R10.13 - Epigastric pain Status: Acute Assessment and Plan: * probably related to PUD * Has been taking NSAID until the last couple of weeks * Probably has an ulcer * CT did not show any reason for the pain * EGD in the am * Might need an MRCP if no ulcer present * see above (3) Coronary artery disease: Onset Date: 2017 Code(s): I25.10 - Atherosclerotic heart disease of [place] coronary artery without angina pectoris Status: Acute Assessment and Plan: * continue aspirin * check lipid panel a.m. * probably need to add a statin (4) Essential (primary) hypertension: Code(s): I10 - Essential (primary) hypertension Status: Chronic Assessment and Plan: * current blood pressure 136/60 * continue losartan 100 mg p.o. daily, continue metoprolol 25 mg p.o. daily * trend blood pressure * adjust therapy as indicated (5) Obstructive sleep apnea: Code(s): G47.33 - Obstructive sleep apnea (adult) (pediatric) Status: Acute Assessment and Plan: * continue home CPAP for settings from home (6) Gastroesophageal reflux disease: Code(s): K21.9 - Gastro-esophageal reflux disease without esophagitis Status: Acute Assessment and Plan: * continue Protonix IV b.i.d. * GI cocktail given the ED * pain seems to be resolved * EGD schedule the morning * GI on board thank you for your help (7) Transaminitis: Code(s): R74.01 - Elevation of levels of liver transaminase levels Status: Acute Assessment and Plan: * liver enzymes elevated and trending up * current AST/ ALT 161/202 * GI on board * EGD scheduled for tomorrow * consider MRCP Time Spent With Patient Time with patient: Greater than 35 minutes Subjective Date/time seen: 05/13/22899 Interval history: 05/13/22899 Patient was on BiPAP on and went in to visit her. Cardiology was consulted and determined that this was not an etiology of cardiac. Patient denies any pain currently. Patient does states that her pain was epigastric and never really left. She also stated that she was on NSAIDs until about 2 weeks ago. Patient also states that she has been taking Protonix and she has been taking it regularly. She denies any chest pain, nausea, vomiting, diarrhea, constipation weakness or fatigue. 05/12/22? 16:45 This is a 46-year-old female with history of coronary artery disease, inferior ST-elevation myocardial infarction in 2018 hypertension, hyperlipidemia, and GERD who presented to the emergency department for evaluation of chest pain. 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 The pain is described as a tightness sensation associated with heaviness in the arms, nausea, sweats, and shortness of breath. She had a similar episode last night and her symptoms eased up with ni
--- NOTE | 2022-05-13 09:38 | PM.CNCAR ---
Assessment and Plan Assessment and plan (1) Chest pain: Code(s): R07.9 - Chest pain, unspecified Status: Acute Assessment and Plan: Patient with 2 days of waxing and waning chest discomfort and epigastric discomfort. Troponins all negative EKG shows no ischemic changes With epigastric tenderness, mild anemia, and elevated LFTs this appears to be a GI problem rather than a cardiac issue. Perghaps aggravated by the diclofenac. Agree with GI evaluation No further cardiac evaluation recommended. (2) Coronary artery disease: Onset Date: 2017 Code(s): I25.10 - Atherosclerotic heart disease of [place] coronary artery without angina pectoris Status: Acute Assessment and Plan: History of CAD an RCA stent Stable CAD Follow-up with Dr. Borrero as scheduled in May (3) Mixed hyperlipidemia: Code(s): E78.2 - Mixed hyperlipidemia Status: Acute Assessment and Plan: LDL not at goal when checked earlier this spring Was intolerant to her atorvastatin Encouraged her to pursue lipid lowering therapy with Dr. Borrero. Statins reduce the risk of ME and stroke, as well as , in addition to lowering cholesterol. Perhaps a different dose or a different type of statin, or non statin would work. (4) Statin intolerance: Code(s): Z78.9 - Other specified health status Status: Acute Assessment and Plan: Muscle cramps on atorvastatin. (5) Elevated LFTs: Code(s): R79.89 - Other specified abnormal findings of blood chemistry Status: Acute Assessment and Plan: Mildly elevated LFTs, history of cholecystectomy. Perhaps fatty liver? Currently off her statin. Plan Will sign off, please let us know we can be of further assistance. Thank you for asking us to participate in this patient's care. History of Present Illness History of Present Illness Consult date/time: 05/13/22 09:38 Reason For Visit: chest pain Narrative: Lucinda Rapp is a 46-year-old female whom we were asked to see at the request of Jaison Rodriguez APN for advice and opinion regarding her chest tightness and epigastric pain, in consultation. She has a history of PCI with stent to the RCA in 2017. Ms. Cruz was diagnosed with ankylosing spondylitis last week and started on diclofenac 75 mg b.i.d.. She Did not feel well on Tuesday, with some chest discomfort and tightness. Tuesday she felt even worse worse, with persistent chest heaviness, radiating to the arms, epigastric discomfort, sweats and nausea. Nitroglycerin x3 did not help. She is already on a PPI. She came to the emergency room and was admitted. GI cocktail did not help. This morning she was given a shot (pantoprazole was given at 9:00 a.m.) with relief The patient sees Dr. Borrero. She had an inferior ST-elevation myocardial infarction had [facility] on March 14, 2018.? Patient did receive 1 drug-eluting stent with 3.5 x 15 mm KAYLI to the totally occluded mid RCA segment.? Patient did have mild disease elsewhere including the proximal RCA, distal left main.? 50% lesion in a 1st diagonal branch.? Circumflex with a 30-40% lesion.? EF was 65%.? Patient did undergo repeat coronary angiogram after that because of recurrence epigastric pain radiating to her back.? At that time catheterization showed patent stents.?? She had been having some epigastric pain in 2018 but EGD was unremarkable.? Repeat admission in November 2020 for chest and epigastric pain; Lexiscan stress test showed no ischemia and good LV function. The patient was taking atorvastatin but it was causing severe muscle spasms. When she stops it for 2 weeks she felt much better, so it has been discontinued.
[2022-05-13 11:12] LABS: Alanine Aminotransferase 202 U/L (6-35); Alkaline Phosphatase 140 U/L (38-126); Aspartate Amino Transferase 161 U/L (14-36); Bilirubin,Total 0.5 mg/dL (0.2-1.3)
[2022-05-13 11:44] LABS: Hepatitis B Surface Antigen Negative (Negative)
[2022-05-13 11:50] LABS: HAV RESULT Negative (Negative); Hepatitis B Core IgM Result Negative (Negative)
[2022-05-13 12:01] LABS: Hepatitis C Virus Antibody Negative (Negative)
--- NOTE | 2022-05-13 15:45 | WPDGICN ---
Assessment and Plan Assessment and plan (1) Atypical chest pain: Code(s): R07.89 - Other chest pain Status: Acute Assessment and Plan: troponins were negative as was EKG. This does not appear to be a cardiac event. Her pain today is nearly gone. (2) Epigastric abdominal pain: Code(s): R10.13 - Epigastric pain Status: Acute Assessment and Plan: due to the fact she is chronically on NSAIDs, I suspect she has peptic ulcer disease. I was concerned about possible choledocholithiasis given her transaminitis. CT is unremarkable in that regard. EGD will be done tomorrow morning (3) Gastroesophageal reflux disease: Code(s): K21.9 - Gastro-esophageal reflux disease without esophagitis Status: Acute Assessment and Plan: She has been doing well in terms of her acid reflux with chronic PPI use (4) Elevated LFTs: Code(s): R79.89 - Other specified abnormal findings of blood chemistry Status: Acute Assessment and Plan: her liver enzymes were normal in January. Yesterday on admission AST and ALT were 65 and 86 respectively. Today they are 161 O2 will to. Also her alkaline phosphatase is elevated today although bilirubin is still normal. There is therefore still a possibility that she has bile duct sludge. If EGD is unremarkable then we will need to consider MRCP etc (5) Coronary artery disease: Onset Date: 2017 Code(s): I25.10 - Atherosclerotic heart disease of [place] coronary artery without angina pectoris Status: Acute Assessment and Plan: 4 years ago she had stenting of the RCA. She has done well until yesterday and it appears that she does not have any active coronary artery disease. Cardiology has been consulted GI Consult Note Consult date/time: 05/13/22 15:45 HPI: Lucinda Rapp is a 46 year old female who presented to the emergency room last evening with a complaint of chest pain and upper abdominal pain. This began in the late afternoon. She was at work when it happened. She recognized this as very similar to the pain she had with her heart attack a few years ago. She in fact required stenting to the RCA at that time. Troponins were negative an EKG was unremarkable. She has been seen by Cardiology who does not feel that this is an acute coronary event. She was also nauseated but has not been vomiting. She has had a cholecystectomy and thinks this pain may be similar to that which she had prior to her cholecystectomy. She was found have some elevation of transaminases. Bilirubin is actually normal. CT scan showed:FINDINGS: Minimal dependent atelectasis is present in the lung bases. The heart size is normal. The gallbladder is surgically absent. There is mild enlargement of the common bile duct and central intrahepatic ducts which is likely due to post cholecystectomy state. The liver, spleen, pancreas, and adrenal glands are normal. A 4 mm hypoattenuating lesion of the right kidney is too small to characterize but likely represents a cyst. The left kidney is unremarkable. No pathologically enlarged abdominal or pelvic lymph nodes are identified. There is no free intraperitoneal gas or evidence of bowel obstruction. There are bilateral L5 pars defects with grade 1 anterolisthesis of L5 on S1. The small fat-containing umbilical hernia is noted. the slightly dilated bile ducts consistent with prior cholecystectomy. There was no evidence of choledocholithiasis. She does take diclofenac twice a day and also aspirin 81 mg daily. She has a history of acid reflux for which she has chronically been on a PPI. She denies any recent dysphagia or pain on swallowing. She has not had any significant change in bowel habits. She has not had any abdominal pain prior to yesterday's discomfort Review of Systems Review of Systems: All systems reviewed & are unremarkable except as noted in HPI and below PMFSH Past Medical History Med
[2022-05-13] MEDS: PRAMIPEXOLE 0.25 MG TABLET PO (20:25)
[2022-05-13] MEDS: CYCLOBENZAPRINE HCL 5 MG TABLET PO (20:27)
[2022-05-14] VITALS (8 sets, daily range): BP systolic 130–161; BP diastolic 73–90; PULSE 65–73; RESP 16–21; TEMP 36.8–37.2; O2SAT 93–97
[2022-05-14 05:02] LABS: Basophils Percent Auto 0.8 % (0.2-1.2); Eosinophils Percent Auto 0.8 % (0-4.4); Hematocrit 35.4 % (37.0-47.0); Hemoglobin 11.5 g/dL (12.0-15.0); Lymphocytes Absolute Auto 0.97 K/mm3 (0.9-3.2); Lymphocytes Percent Auto 38.2 % (18.3-44.2); Mean Corpuscular HGB Conc 32.5 g/dl (32-36); Mean Corpuscular Volume 86.1 fl (80-100); Mean Platelet Volume 10.2 fl (7.4-10.4); Monocytes Absolute Auto 0.3 K/mm3 (0.1-0.6); Neutrophils Absolute Auto 1.3 K/mm3 (1.3-6.7); Neutrophils Percent Auto 49.2 % (45.5-73.1); Platelet Count Result 175 k/mm3 (150-375); Red Blood Count 4.11 M/mm3 (4.2-5.4); Red Cell Distribution Width 13.7 % (11.5-14.5); White Blood Count 2.5 K/mm3 (4.5-10.0)
[2022-05-14 05:12] LABS: Alanine Aminotransferase 245 U/L (6-35); Albumin Level 3.7 g/dL (3.5-5.1); Alkaline Phosphatase 129 U/L (38-126); Anion Gap 4 mmol/L (8-16); Aspartate Amino Transferase 153 U/L (14-36); Bilirubin,Total 0.3 mg/dL (0.2-1.3); Blood Urea Nitrogen 12 mg/dL (7-17); Calcium 7.9 mg/dL (8.4-10.2); Carbon Dioxide 30 mmol/L (22-30); Chloride 101 mmol/L (98-107); Cholesterol 199 mg/dL (0-200); Estimated CRCL calculation 82 ml/min; Estimated Glomerular Filt Rate > 60; Glucose 82 mg/dL (65-110); HDL Direct 34 mg/dL; Magnesium 2.1 mg/dL (1.6-2.3); Potassium 3.6 mmol/L (3.4-5.0); Sodium 135 mmol/L (137-145); Triglycerides 155 mg/dL (<150)
[2022-05-14 05:22] LABS: LDL Cholesterol Direct 89 mg/dL
[2022-05-14 06:03] LABS: Hepatitis B Surface Antigen Negative (Negative)
[2022-05-14 06:08] LABS: HAV RESULT Negative (Negative); Hepatitis B Core IgM Result Negative (Negative)
[2022-05-14 06:20] LABS: Hepatitis C Virus Antibody Negative (Negative)
--- NOTE | 2022-05-14 08:00 | PM.DS ---
DS: Admitting Diagnosis Discharge Date 05/14/22 0800 Admitting Diagnosis Gastritis DS: Discharge Diagnosis Discharge Diagnosis (1) Atypical chest pain: Code(s): R07.89 - Other chest pain Status: Acute Assessment and Plan: Troponins negative x3 EKG with no significant changes cardiology consulted no cardiac workup recommended GI consulted seems to be more like PUD EGD for tomorrow (2) Epigastric abdominal pain: Code(s): R10.13 - Epigastric pain Status: Acute Assessment and Plan: probably related to PUD Has been taking NSAID until the last couple of weeks Probably has an ulcer CT did not show any reason for the pain EGD in the am Might need an MRCP if no ulcer present see above (3) Coronary artery disease: Onset Date: 2017 Code(s): I25.10 - Atherosclerotic heart disease of [place] coronary artery without angina pectoris Status: Acute Assessment and Plan: continue aspirin check lipid panel a.m. probably need to add a statin (4) Essential (primary) hypertension: Code(s): I10 - Essential (primary) hypertension Status: Chronic Assessment and Plan: current blood pressure 136/60 continue losartan 100 mg p.o. daily, continue metoprolol 25 mg p.o. daily trend blood pressure adjust therapy as indicated (5) Obstructive sleep apnea: Code(s): G47.33 - Obstructive sleep apnea (adult) (pediatric) Status: Acute Assessment and Plan: continue home CPAP for settings from home (6) Gastroesophageal reflux disease: Code(s): K21.9 - Gastro-esophageal reflux disease without esophagitis Status: Acute Assessment and Plan: continue Protonix IV b.i.d. GI cocktail given the ED pain seems to be resolved EGD schedule the morning GI on board thank you for your help (7) Transaminitis: Code(s): R74.01 - Elevation of levels of liver transaminase levels Status: Acute Assessment and Plan: liver enzymes elevated and trending up current AST/ ALT 161/202 GI on board EGD scheduled for tomorrow consider MRCP DS: Summary Hospital Course Hospital Course: Patient is a 46-year-old female with a past medical history coronary artery disease, mi, hypertension, JENNA who presented to the ED with abnormal chest/epigastric pain. Patient stated that she was having this issue after portions of current work and she took nitro x3 however no relief was found. Troponins were negative x3 EKGs did not exhibit any ST elevation or any alterations at all. Cardiology was consulted and no further workup was recommended. GI was also consulted because patient did admit to taking ibuprofen regularly for a long time and recently has just quit. She does complain of pain that is more in the epigastric area. Dr. Pappas had recommended the patient get Protonix twice a day. EGD was performed showed gastritis and H pylori was sent. Liver enzymes are also noted to be elevated hep panel was negative. Patient denies any symptoms at this time and is stable for discharge for labs and vital signs. She currently feels better and denies any pain including chest pain, shortness of breath, nausea, vomiting, diarrhea, constipation, weakness or fatigue. She will need to follow up with Dr. Pappas outpatient. Status at Discharge Functional status at discharge: independent ambulation Overall status at discharge: patient is progressing back to baseline Time Spent with Patient Time attestation: Total time spent providing and/or coordinating discharge services: 36 minutes Time spent: Greater than 30 minutes Specific discharge activities: Diagnostic testing, chart review, developing a treatment plan, education, care coordination documentation, physical exam, result review Exam Const: General: cooperative, healthy appearing, no
--- NOTE | 2022-05-14 08:00 | P.DS_ITS ---
DS: Admitting Diagnosis Discharge Date 05/14/22 0800 Admitting Diagnosis Gastritis DS: Discharge Diagnosis Discharge Diagnosis (1) Atypical chest pain: Code(s): R07.89 - Other chest pain Status: Acute Assessment and Plan: * Troponins negative x3 * EKG with no significant changes * cardiology consulted * no cardiac workup recommended * GI consulted * seems to be more like PUD * EGD for tomorrow (2) Epigastric abdominal pain: Code(s): R10.13 - Epigastric pain Status: Acute Assessment and Plan: * probably related to PUD * Has been taking NSAID until the last couple of weeks * Probably has an ulcer * CT did not show any reason for the pain * EGD in the am * Might need an MRCP if no ulcer present * see above (3) Coronary artery disease: Onset Date: 2017 Code(s): I25.10 - Atherosclerotic heart disease of [place] coronary artery without angina pectoris Status: Acute Assessment and Plan: * continue aspirin * check lipid panel a.m. * probably need to add a statin (4) Essential (primary) hypertension: Code(s): I10 - Essential (primary) hypertension Status: Chronic Assessment and Plan: * current blood pressure 136/60 * continue losartan 100 mg p.o. daily, continue metoprolol 25 mg p.o. daily * trend blood pressure * adjust therapy as indicated (5) Obstructive sleep apnea: Code(s): G47.33 - Obstructive sleep apnea (adult) (pediatric) Status: Acute Assessment and Plan: * continue home CPAP for settings from home (6) Gastroesophageal reflux disease: Code(s): K21.9 - Gastro-esophageal reflux disease without esophagitis Status: Acute Assessment and Plan: * continue Protonix IV b.i.d. * GI cocktail given the ED * pain seems to be resolved * EGD schedule the morning * GI on board thank you for your help (7) Transaminitis: Code(s): R74.01 - Elevation of levels of liver transaminase levels Status: Acute Assessment and Plan: * liver enzymes elevated and trending up * current AST/ ALT 161/202 * GI on board * EGD scheduled for tomorrow * consider MRCP DS: Summary Hospital Course Hospital Course: Patient is a 46-year-old female with a past medical history coronary artery disease, mi, hypertension, JENNA who presented to the ED with abnormal chest/epigastric pain. Patient stated that she was having this issue after portions of current work and she took nitro x3 however no relief was found. Troponins were negative x3 EKGs did not exhibit any ST elevation or any alterations at all. Cardiology was consulted and no further workup was recommended. GI was also consulted because patient did admit to taking ibuprofen regularly for a long time and recently has just quit. She does complain of pain that is more in the epigastric area. Dr. Pappas had recommended the patient get Protonix twice a day. EGD was performed showed gastritis and H pylori was sent. Liver enzymes are also noted to be elevated hep panel was negative. Patient denies any symptoms at this time and is stable for discharge for labs and vital signs. She currently feels better and denies any pain including chest pain, shortness of breath, nausea, vomiting, diarrhea, constipation, weakness or fatigue. She will need to follow up with Dr. Weller
[2022-05-14] MEDS: LOSARTAN POTASSIUM 50 MG TABLET 100 MG PO (08:47)
[2022-05-14] MEDS: METOPROLOL TARTRATE 25 MG TABLET PO (08:47)
[2022-05-14] MEDS: DULoxetine HCL 60 MG CAPSULE.DR PO (08:47)
[2022-05-14] MEDS: ASPIRIN 81 MG ENTERIC TABLET PO (08:48)
[2022-05-14] MEDS: PANTOPRAZOLE SODIUM IV 40 MG VIAL IV PUSH (08:48)
[2022-05-14] MEDS: FLUTICASONE PROPIONATE 0.05% NA SPR 16 GM BTL (*BKC) 1 SPRAY NASAL (08:48)
[2022-05-14] MEDS: LACTATED RINGERS 1,000 ML 150 ML IV CONT (12:28)
--- NOTE | 2022-05-14 13:01 | WPDANESEPPF ---
Anes - Initial Pre Proc Eval Procedure: Operation Date: 05/14/22 14:30 Proposed Procedures p Esophagogastroduodenoscopy - Hawk Pappas MD Date/Time: 05/14/22 13:01 Surgeon: Zurdo Rosario MD Pre Op Diagnosis: chest pain Patient Data Age: 46 Gender: F Height: 1.57 m Weight: 111.8 kg Last Vital Signs Temp 98.9 F 05/14/22 12:30 Pulse 72 05/14/22 12:30 Resp 17 05/14/22 12:30 BP 131/81 05/14/22 12:30 Pulse Ox 94 05/14/22 12:30 O2 Del Method Room Air 05/14/22 12:30 FiO2 21 05/13/22 22:20 Allergies Allergy/AdvReac Type Severity Reaction Status Date / Time No Known Allergies Allergy Verified 05/14/22 12:29 Home Medications Medication Instructions Recorded Confirmed Type aspirin 81 mg tablet,delayed 81 mg PO DAILY 12/03/19 05/12/22 History release (Aspir-) metoprolol tartrate 25 mg tablet 25 mg PO DAILY 07/04/21 05/12/22 History duloxetine 60 mg capsule,delayed 60 mg PO DAILY #90 caps 11/12/21 05/12/22 Rx release (Cymbalta) nitroglycerin 0.4 mg sublingual 0.4 mg sublingual PRN #25 tabs 11/20/21 05/12/22 Rx tablet pramipexole 0.25 mg tablet 0.25 mg PO QHS restless legs #30 01/28/22 05/12/22 Rx tabs losartan 50 mg tablet 100 mg PO DAILY #90 tabs 04/19/22 05/12/22 Rx Aleve Cold and Sinus 1 tablet BYMOUTH PRN sinus headache 05/12/22 05/12/22 History Tylenol Extra Strength 2 tablet PO BID 05/12/22 05/12/22 History cyclobenzaprine 5 mg tablet 5 mg PO QHS 05/12/22 05/12/22 History diclofenac sodium 75 mg 75 mg PO BID 05/12/22 05/12/22 History tablet,delayed release omeprazole 40 mg capsule,delayed 40 mg PO DAILY 05/12/22 05/12/22 History release pantoprazole 40 mg tablet,delayed 40 mg PO DAILY 05/12/22 05/12/22 History release tramadol 50 mg tablet 50 mg PO TID Pain 05/12/22 05/12/22 History Laboratory Tests 05/14/22 05/14/22 05/14/22 04:23 04:23 04:23 WBC 2.5 K/mm3 L K/mm3 (4.5-10.0) RBC 4.11 M/mm3 L M/mm3 (4.2-5.4) Hgb 11.5 g/dL L g/dL (12.0-15.0) Hct 35.4 % L % (37.0-47.0) MCV 86.1 fl fl (80-100) MCH 28.0 pg pg (26-34) MCHC 32.5 g/dl g/dl (32-36) RDW 13.7 % % (11.5-14.5) Plt Count 175 k/mm3 k/mm3 (150-375) MPV 10.2 fl fl (7.4-10.4) Immature Gran % (Auto) 0.0 % % (0-0.5) Neut % (Auto) 49.2 % % (45.5-73.1) Lymph % (Auto) 38.2 % % (18.3-44.2) Cook % (Auto) 11.0 % H % (2.6-8.5) Eos % (Auto) 0.8 % % (0-4.4) Baso % (Auto) 0.8 % % (0.2-1.2) Lymph # (Auto) 0.97 K/mm3 K/mm3 (0.9-3.2) Cook # (Auto) 0.3 K/mm3 K/mm3 (0.1-0.6) Eos # (Auto) 0.0 K/mm3 K/mm3 (0-0.3) Baso # (Auto) 0.0 K/mm3 K/mm3 (0.0-0.1) Abs Immat Gran (auto) 0.00 K/mm3 K/mm3 (0.00-0.031) Absolute Neuts (auto) 1.3 K/mm3 K/mm3 (1.3-6.7) Absolute Nucleated RBC 0.0 K/mm3 K/mm3 (0.0-0.012) Nucleated RBC % 0.0 % % (0.0-0.2) Sodium 135 mmol/L L mmol/L (137-145) Potassium 3.6 mmol/L mmol/L (3.4-5.0) Chloride 101 mmol/L mmol/L (98-107) Carbon Dioxide 30 mmol/L mmol/L (22-30) Anion Gap 4 mmol/L L mmol/L (8-16) BUN 12 mg/dL mg/dL (7-17) Creatinine 0.90 mg/dL mg/dL (0.7-1.0) Estim Creat Clear Calc 82 ml/min ml/min Estimated GFR > 60 (59 - ) Glucose 82 mg/dL mg/dL (65-110) Calcium 7.9 mg/dL L mg/dL (8.4-10.2) Magnesium 2.1 mg/dL mg/dL (1.6-2.3) Total Bilirubin 0.3 mg/dL mg/dL (0.2-1.3) AST 153 U/L H U/L (14-36) ALT 245 U/L H U/L (6-35) Alkaline Phosphatase 129 U/L H U/L (38-126) Total Protein 7.0 g/dL g/dL (6.3-8.2) Albumin 3.7 g/dL g/dL (3.5-5.1) Triglycerides 155 mg/dL H mg/dL (<150) Cholesterol
--- NOTE | 2022-05-14 13:38 | P.PNIM_ITS ---
Progress Note: A&P Assessment and Plan (1) Gastritis: Code(s): K29.70 - Gastritis, unspecified, without bleeding Status: Acute Assessment and Plan: * Has been taking NSAID until the last couple of weeks * Probably has an ulcer * CT did not show any reason for the pain * EGD found gastritis * Might need an MRCP if no ulcer present (2) Atypical chest pain: Code(s): R07.89 - Other chest pain Status: Acute Assessment and Plan: * Troponins negative x3 * EKG with no significant changes * cardiology consulted * no cardiac workup recommended * GI consulted * EGD showed gastritis (3) Epigastric abdominal pain: Code(s): R10.13 - Epigastric pain Status: Acute Assessment and Plan: * see above (4) Coronary artery disease: Onset Date: 2017 Code(s): I25.10 - Atherosclerotic heart disease of [place] coronary artery without angina pectoris Status: Acute Assessment and Plan: * continue aspirin * lipid panel triglycerides 155, cholesterol 199, LDL 89, HDL 34 * probably need to add a statin (5) Essential (primary) hypertension: Code(s): I10 - Essential (primary) hypertension Status: Chronic Assessment and Plan: * current blood pressure 135/82 * continue losartan 100 mg p.o. daily, continue metoprolol 25 mg p.o. daily * trend blood pressure * adjust therapy as indicated (6) Obstructive sleep apnea: Code(s): G47.33 - Obstructive sleep apnea (adult) (pediatric) Status: Acute Assessment and Plan: * continue home CPAP for settings from home (7) Gastroesophageal reflux disease: Code(s): K21.9 - Gastro-esophageal reflux disease without esophagitis Status: Acute Assessment and Plan: * continue Protonix IV b.i.d. * GI cocktail given the ED * pain seems to be resolved * EGD found gastritis * GI on board thank you for your help (8) Transaminitis: Code(s): R74.01 - Elevation of levels of liver transaminase levels Status: Acute Assessment and Plan: * liver enzymes elevated and trending up * current AST/ ALT 153/245 * GI on board * EGD found gastritis * consider MRCP Time Spent With Patient Time with patient: Greater than 35 minutes Subjective Date/time seen: 05/14/22 08 Interval history: 07/01/22 0800 Patient is doing well today. She is ready to get her EGD done today. She has had no pain overnight and is feeling comfortable at this time she denies any chest pain, shortness of breath, nausea, vomiting, diarrhea, constipation of weakness or fatigue. 05/13/22 0900 Patient was on BiPAP on and went in to visit her. Cardiology was consulted and determined that this was not an etiology of cardiac. Patient denies any pain currently. Patient does states that her pain was epigastric and never really left. She also stated that she was on NSAIDs until about 2 weeks ago. Patient also states that she has been taking Protonix and she has been taking it regularly. She denies any chest pain, nausea, vomiting, diarrhea, constipation weakness or fatigue. 05/12/22? 16:45 This is a 46-year-old female with history of coronary artery disease, inferior ST-elevation myocardial infarction in 2018 hypertension, hyperlipidemia
--- NOTE | 2022-05-14 13:38 | PM.IMPN ---
Progress Note: A&P Assessment and Plan (1) Gastritis: Code(s): K29.70 - Gastritis, unspecified, without bleeding Status: Acute Assessment and Plan: Has been taking NSAID until the last couple of weeks Probably has an ulcer CT did not show any reason for the pain EGD found gastritis Might need an MRCP if no ulcer present (2) Atypical chest pain: Code(s): R07.89 - Other chest pain Status: Acute Assessment and Plan: Troponins negative x3 EKG with no significant changes cardiology consulted no cardiac workup recommended GI consulted EGD showed gastritis (3) Epigastric abdominal pain: Code(s): R10.13 - Epigastric pain Status: Acute Assessment and Plan: see above (4) Coronary artery disease: Onset Date: 2017 Code(s): I25.10 - Atherosclerotic heart disease of [place] coronary artery without angina pectoris Status: Acute Assessment and Plan: continue aspirin lipid panel triglycerides 155, cholesterol 199, LDL 89, HDL 34 probably need to add a statin (5) Essential (primary) hypertension: Code(s): I10 - Essential (primary) hypertension Status: Chronic Assessment and Plan: current blood pressure 135/82 continue losartan 100 mg p.o. daily, continue metoprolol 25 mg p.o. daily trend blood pressure adjust therapy as indicated (6) Obstructive sleep apnea: Code(s): G47.33 - Obstructive sleep apnea (adult) (pediatric) Status: Acute Assessment and Plan: continue home CPAP for settings from home (7) Gastroesophageal reflux disease: Code(s): K21.9 - Gastro-esophageal reflux disease without esophagitis Status: Acute Assessment and Plan: continue Protonix IV b.i.d. GI cocktail given the ED pain seems to be resolved EGD found gastritis GI on board thank you for your help (8) Transaminitis: Code(s): R74.01 - Elevation of levels of liver transaminase levels Status: Acute Assessment and Plan: liver enzymes elevated and trending up current AST/ ALT 153/245 GI on board EGD found gastritis consider MRCP Time Spent With Patient Time with patient: Greater than 35 minutes Subjective Date/time seen: 05/14/22 08 Interval history: 05/14/22799 Patient is doing well today. She is ready to get her EGD done today. She has had no pain overnight and is feeling comfortable at this time she denies any chest pain, shortness of breath, nausea, vomiting, diarrhea, constipation of weakness or fatigue. 05/13/22 0900 Patient was on BiPAP on and went in to visit her. Cardiology was consulted and determined that this was not an etiology of cardiac. Patient denies any pain currently. Patient does states that her pain was epigastric and never really left. She also stated that she was on NSAIDs until about 2 weeks ago. Patient also states that she has been taking Protonix and she has been taking it regularly. She denies any chest pain, nausea, vomiting, diarrhea, constipation weakness or fatigue. 05/12/22? 16:45 This is a 46-year-old female with history of coronary artery disease, inferior ST-elevation myocardial infarction in 2018 hypertension, hyperlipidemia, and GERD who presented to the emergency department for evaluation of chest pain. 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 The pain is described as a tightness sensation associated with heaviness in the arms, nausea, sweats, and shortness of breath. She had a similar episode last night and her symptoms eased up with nitroglycerin though unfortunately she continues to have this pain despite receiving nitroglycerin x3 today. Her initial troponin was negative an her EKG did not show
--- NOTE | 2022-05-14 16:45 | PC.NURSE ---
Discharge forms explained and given to pt. Pt left off unit stable, with and all personal belongings. Pt refused W/C
== END 2022-05-14 16:30 | disposition home or self-care (01) ==
LOC: ANHED 15:29 → ANHIMU 19:02
PROVIDERS: Emergency Medicine; Internal Medicine Gastroenterology; Physician Assistant; Admitting Provider Internal Medicine; Emergency Provider Emergency Medicine; PCP Internal Medicine; Visit Provider Nurse Practitioner
PROC: 0DJ08ZZ Inspection of Upper Intestinal Tract, Via Natural or Artificial Opening Endoscopic (ICD-10-PCS; CPT 43235; principal; 2022-05-14 14:30)
DX: R07.89 Other chest pain (principal); R10.13 Epigastric pain; Z79.82 Long term (current) use of aspirin; I25.10 Atherosclerotic heart disease of native coronary artery without angina pectoris; I10 Essential (primary) hypertension; E78.00 Pure hypercholesterolemia, unspecified; K21.9 Gastro-esophageal reflux disease without esophagitis; Z87.891 Personal history of nicotine dependence; G47.33 Obstructive sleep apnea (adult) (pediatric); R74.01 Elevation of levels of liver transaminase levels; R79.89 Other specified abnormal findings of blood chemistry; E78.2 Mixed hyperlipidemia
CPT/HCPCS: 36415; 71046; 74177; 80048; 80053; 80061; 80074; 80076; 83690; 83735; 84484; 85025; 85027; 85610; 85730; 87081; 93005; 96374; 96375; 96376; 99285; A9270; C9113; G0378; J2001; J2270; J2704; J7120; Q9967

== ENCOUNTER 2023-12-12 13:36 | Outpatient (CLI) | payer OTHER, SELFPAY ==
[2023-12-12 15:06] LABS: Basophils Absolute Auto 0.1 K/mm3 (0.0-0.1); Basophils Percent Auto 0.7 % (0.2-1.2); Eosinophils Absolute Auto 0.1 K/mm3 (0-0.3); Eosinophils Percent Auto 1.8 % (0-4.4); Hemoglobin 13.4 g/dL (12.0-15.0); Immature Granulocyte Absolute 0.02 K/mm3 (0.00-0.031); Immature Granulocyte Percent A 0.3 % (0-0.5); Lymphocytes Absolute Auto 2.81 K/mm3 (0.9-3.2); Lymphocytes Percent Auto 39.2 % (18.3-44.2); Mean Corpuscular HGB Conc 31.9 g/dl (32-36); Mean Corpuscular Volume 87.9 fl (80-100); Mean Platelet Volume 10.4 fl (7.4-10.4); Monocytes Absolute Auto 0.6 K/mm3 (0.1-0.6); Monocytes Percent Auto 7.7 % (2.6-8.5); Neutrophils Absolute Auto 3.6 K/mm3 (1.3-6.7); Neutrophils Percent Auto 50.3 % (45.5-73.1); Platelet Count Result 322 k/mm3 (150-375); Red Blood Count 4.78 M/mm3 (4.2-5.4); Red Cell Distribution Width 13.2 % (11.5-14.5); White Blood Count 7.2 K/mm3 (4.5-10.0)
[2023-12-12 15:18] LABS: Alanine Aminotransferase 19 U/L (6-35); Alkaline Phosphatase 102 U/L (38-126); Anion Gap 6 mmol/L (8-16); Aspartate Amino Transferase 19 U/L (14-36); Bilirubin,Total 0.9 mg/dL (0.2-1.3); Blood Urea Nitrogen 17 mg/dL (7-17); Calcium 9.3 mg/dL (8.4-10.2); Carbon Dioxide 29 mmol/L (22-30); Chloride 103 mmol/L (98-107); Cholesterol 230 mg/dL (0-200); Estimated Glomerular Filt Rate > 60; Glucose 82 mg/dL (65-110); HDL Direct 41 mg/dL; Potassium 3.8 mmol/L (3.4-5.0); Sodium 138 mmol/L (137-145); Triglycerides 234 mg/dL (<150)
[2023-12-12 15:29] LABS: LDL Cholesterol Direct 135 mg/dL
[2023-12-12 22:46] LABS: Hemoglobin A1C 5.6 % (<5.7)
== END 2023-12-12 13:37 | disposition home or self-care (01) ==
LOC: ANHLAB 13:39
PROVIDERS: PCP Nurse Practitioner Family; Visit Provider Nurse Practitioner Family
DX: Z13.1 Encounter for screening for diabetes mellitus (principal); Z13.0 Encounter for screening for diseases of the blood and blood-forming organs and certain disorders involving the immune mechanism; Z13.228 Encounter for screening for other metabolic disorders; Z13.220 Encounter for screening for lipoid disorders; Z68.41 Body mass index [BMI] 40.0-44.9, adult
CPT/HCPCS: 36415; 80053; 80061; 83036; 85025

== ENCOUNTER 2025-03-29 08:14 | Outpatient (CLI) | payer OTHER, SELFPAY ==
--- OUTSIDE RECORDS SUMMARY | 2025-03-29 08:18 | XMS_ITS | Referral Summary ---
Author Organization [facility] [address] Address [address] [place] [address] Care Team Providers Care Hand Router Operator Name Role Phone Redd Toribio DO Primary Care Provider Encounters Date Type Department Care Team Description 01/21/2025 4:08 PM CDT - 01/21/2025 11:59 PM CDT Hospital Encounter [address] [address] Discharge Disposition: Discharge to home or self care from Last 3 Months Allergies No known active allergies Medications famotidine (PEPCID) 40 mg tablet Take 40 mg by mouth 2 (two) times a day. 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 Take 1 tablet (25 mg total) by mouth 2 (two) times a day 180 tablet 3 3 Active aspirin 81 mg enteric coated tablet Take 1 tablet (81 mg total) by mouth daily 90 tablet 3 3 Active atorvastatin (LIPITOR) 40 mg tablet Take 1 tablet (40 mg total) by mouth daily 90 tablet 3 3 Active Active Problems Problem Noted Date Diagnosed Date Essential hypertension 08/12/2023 Mixed hyperlipidemia 06/09/2020 Snoring 06/09/2020 CONNOR (dyspnea on exertion) 06/09/2020 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 Continue beta-jean carlos and losartan Morbid obesity with body mas s index (BMI) of 40.0 to 44.9 in adult 04/27/2018 Assessment & Plan (04/27/2018 1:21 PM CDT): Advised patient about regular exercise and diet modification to help her lose weight. Social History Tobacco Use Types Packs/Day Years Used Date Smoking Tobacco: Former Cigarettes 0.5 13 0 06/09/1996 - 06/09/2009 Smokeless Tobacco: Never Tobacco Cessation:Counseling Given: Not Answered Alcohol Use Standard Drinks/Week Comments No 0 (1 standard drink = 0.6 oz pur e alcohol) Comments Unknown Sex and Gender Information Value Date Recorded Sex Assigned at Not on file Legal Sex Female 2:48 PM CDT Gender Identity Not on file Sexual Orientation Not on file Last Filed Vital Signs Vital Sign Reading Time Taken Comments Blood Pressure 159/100 08/12/2023 9:23 AM CDT Pulse 70 08/12/2023 9:23 AM CDT Temperature - - Respiratory Rate 18 08/12/2023 9:23 AM CDT Oxygen Saturation 97% 08/12/2023 9:23 AM CDT Inhaled Oxygen Concentration - - Weight 105.2 kg (232 lb) 08/12/2023 9:23 AM CDT Height 162.6 cm (5' 4 ) 08/12/2023 9:23 AM CDT Body Mass Index 39.82 08/12/2023 9:23 AM CDT Plan of Treatment Not on file Procedures Procedure Name Priority Date/Time Associated Diagnosis Comments EGFR Routine 01/21/2025 11:10 AM CDT DIFFERENTIAL AUTO Routine 01/21/2025 11: 10 AM CDT HEPATIC FUNCTION PANEL Routine 01/21/2025 11:10 AM CDT CREATININE Routine 01/21/2025 11:10 AM CDT CBC WITH AUTO DIFFERENTIAL Routine 01/21/2025 11:10 AM CDT from Last 3 Months Results * eGFR (01/21/2025 11:10 AM CDT) eGFR 80 >=60 mL/min/1. 73 m2 Comment: Interpretive Data Reference Interval Normal >/= 90 mL/min/1.73m2 Mildly decreased* 60 - 89 mL/min/1.73m2 Mildly to moderately decreased 45 - 59 mL/min/1.73m2 Moderately to severely decreased 30 - 44 mL/min/1.73m2 Severely decreased 15 - 29 mL/min/1.73m2 Kidney Failure < 15 mL/min/1.73m2 *Relative to young adult level Estimated glomerular filtration rate is determined by the 2020 CKD-EPI equation recommended by the National Kidney Foundation (A Unifying Approach to GFR Estimation: Recommendations of the NKF-ASK Task Force on Reassessing the Inclusion of Race in Diagnosing Kidney Disease, JASN 202). The CKD-EPI equation should not be used for patients with unstable renal function and has not been validated in children and those over 70. Current interpretive data was last reviewed 2021. Blood 01/21/2025 11:1 0 AM CDT 01/21/2025 8:48 PM CDT us Doug Shin MD LAB BLOOD ORDERABLES Fin al Result [facility] [address] Department [place] [address] * Differential, auto (01/21/2025 11:10 AM CDT) Neutrophil abs 3.0 1.5 - 6.5 K/cumm Imm gran abs 0.0 0.0 - 0.1 K/cumm [facility] Lymphocyte abs 1.7 0.8 - 3.3 K/cumm [facility] Monocyte abs 0.4 0.2 - 0.8 K/cumm [facility] Eosinophil abs 0.2 0.0 - 0.5 K/cumm [facility] Basophil abs 0.1 0.0 - 0.1 K/cumm [facility] Neutrophil pct 55.9 % [facility] Comment: Interpretive Data Percent cell count reference ranges are not reported, since discordance with absolute values may lead to misinterpretation of CBC data. Current Interpretive Data was last revised on 2018. Imm gran pct 0.2 % [facility] Comment: Interpretive Data Percent cell count reference ranges are not reported, since discordance with absolute values may lead to misinterpretation of CBC data. Current Interpretive Data was last revised on 2018. Lymphocyte pct 32.2 % [facility] Comment: Interpretive Data Percent cell count reference ranges are not reported, since discordance with absolute values may lead to misinterpretation of CBC data. Current Interpretive Data was last revised on 2018. Monocyte pct 7.8 % [facility] Comment: Interpretive Data Percent cell count reference ranges are not reported, since discordance with absolute values may lead to misinterpretation of CBC data. Current Interpretive Data was last revised on 2018. Eosinophil pct 3.0 % [facility] Comment: Interpretive Data Percent cell count reference ranges are not reported, since discordance with absolute values may lead to misinterpretation of CBC data. Current Interpretive Data was last revised on 2018. Basophil pct 0.9 % [facility] Comment: Interpretive Data Percent cell count reference ranges are not reported, since discordance with absolute values may lead to misinterpretation of CBC data. Current Interpretive Data was last revised on 2018. Blood 01/21/2025 11:1 0 AM CDT 01/21/2025 5:05 PM CDT Doug Shin MD LAB BLOOD ORDERABLES Fin al Result Performing Organization Address City/[facility]/ZIP Co de Phone Number [facility] [address] [facility] [place], [place] [phone] * (ABNORMAL) CBC with auto differential (01/21/2025 11:10 AM CDT) WBC 5.4 3.8 - 9.9 K/cumm Hgb 13.9 11.9 - 15.5 g/dL [facility] Hct 44.2 35.6 - 45.5 % [facility] Plt 264 150 - 400 K/cumm [facility] MPV 11.0 9.1 - 12.3 fL [facility] RBC 4.94 3.90 - 5.20 M/cumm [facility] MCV 89.5 81.3 - 96.4 fL [facility] MCH 28.1 27.1 - 33.3 pg [facility] MCHC 31.4(L) 32.3 - 35.7 g/dL [facility] RDW CV 13.5 11.1 - 14.9 % [facility] RDW SD 44.4 35.7 - 48.1 fL [facility] NRBC abs 0.00 0.00 - 0.01 K/cumm [facility] Blood 01/21/2025 11:1 0 AM CDT 01/21/2025 5:05 PM CDT Doug Shin MD LAB BLOOD ORDERABLES Fin al Result Performing Organization Address City/[facility]/ZIP Co de Phone Number [facility] [address] Department [place], [place] [id number] * Creatinine (01/21/2025 11:10 AM CDT) Pathologist [facility] [place] Creatinine 0.89 0.60 - 1.10 mg/dL Blood 01/21/2025 11:1 0 AM CDT 01/21/2025 5:05 PM CDT Doug Shin MD LAB BLOOD ORDERABLES Fin al Result Performing Organization Address City/[facility]/ZIP Co de Phone Number [facility] [address] [facility] [place] [address] * Hepatic function panel (01/21/2025 11:10 AM CDT) [facility] Signature Bilirubin, total 0.6 0.1 - 1.2 mg/dL Bilirubin, direct <0.2 0.1 - 0.3 mg/dL [facility] Protein, pl 7.3 6.5 - 8.5 g/dL [facility] Albumin 3.8 3.5 - 5.0 g/dL [facility] Alk phos 107 40 - 130 Units/L [facility] ALT 27 7 - 45 Units/L [facility] AST 23 10 - 45 Units/L [facility] Blood 01/21/2025 11:1 0 AM CDT 01/21/2025 5:05 PM CDT Doug Shin MD LAB BLOOD ORDERABLES Fin al Result Performing Organization Address [facility] Co de Phone Number [facility] [address] [place] [address] from Last 3 Months Insurance [facility] Care Teams Hand Router Operator Relationship Specialty Start Date End Date Redd Toribio DO PCP - General Internal Medicine 04/24/18
--- OUTSIDE RECORDS SUMMARY | 2025-03-29 08:18 | XMS_ITS | Clinical Summary ---
Author Organization [facility] [place] [address] Address [address] [place] [address] Care Team Providers Care Mental Health Aide Name Role Phone Redd Toribio Primary Care Provider [phone] Allergies No known active allergies Medications famotidine [...] immediate release tabletIndications :Coronary artery disease involving [place] coronary artery of [place] heart without angina pectoris Take 1 tablet [...] exertion) 06/09/2020 Coronary artery disease invo lving [place] coronary artery of table [place] heart without angina pectoris 04/27/2018 Assessment & Plan (04/27/2018 1:20 PM CDT): Continue aspirin, Brilinta, statin. Continue beta-jean carlos and losartan Morbid obesity with body mas s index (BMI) of 40.0 to 44.9 in adult 04/27/2018 Assessment & Plan (04/27/2018 1:21 PM CDT): Advised patient about regular exercise and diet modification to help her lose weight. Encounters Date Type Department Care Team Description 01/21/2025 4:08 PM CDT - 01/21/2025 11:59 PM CDT Hospital Encounter [address] [address] Discharge Disposition: Discharge to home or self care from Last 3 Months Surgical History Surgery Date Site/Laterality Comments CORONARY ANGIOPLASTY CARDIAC CATHETERIZATION Medical History Medical History Date Comments Coronary artery disease Family History Medical History Relation Name Comments Hypertension Mother Heart disease Sister Relation Name Status Comments Mother Sister Social History Tobacco Use Types Packs/Day Years [...] on file Sexual Orientation Not on file Obstetrics History Last Filed Vital Signs Vital Sign Reading [...] 08/12/2023 9:23 AM CDT Plan of Treatment Health Maintenance Due Date Last Done Comments Breast Cancer Screening-Mammogram 1976 Cervical Cancer Screening 1976 Colon Cancer Screening-Colonoscopy 1976 Depression Screening 1976 Hepatitis C Screening 1976 DTaP/Tdap/Td Vaccine (1 - Tdap) 1987 Hepatitis B Screening 1994 Regular Well Visit/Exam 18-64 1994 Influenza Vaccine (Season Ended) 2025 Pneumococcal vaccine <65 Aged Out No longer eligible based on patient's age to complete this topic Procedures Procedure Name Priority Date/Time Associated Diagnosis [...] of Race in Diagnosing Kidney Disease, JASN 2020). The CKD-EPI equation should not be used for patients with unstable renal function and has not been validated in children and those over 70. Current interpretive data was last reviewed 2021. Blood 01/21/2025 11:1 0 AM CDT 01/21/2025 8:48 PM CDT us Doug hSin MD LAB BLOOD ORDERABLES Fin al Result [facility] [address] Department [place] [address] * Differential, auto (01/21/2025 11:10 AM CDT) Neutrophil abs 3.0 1.5 - 6.5 K/cumm Imm gran abs 0.0 0.0 - 0.1 K/cumm [facility] Lymphocyte abs 1.7 0.8 - 3.3 K/cumm [facility] Monocyte abs 0.4 0.2 - 0.8 K/cumm [facility] Eosinophil abs 0.2 0.0 - 0.5 K/cumm [facility] Basophil abs 0.1 0.0 - 0.1 K/cumm [facility] Neutrophil pct 55.9 % [facility] Comment: Interpretive Data Percent cell count reference ranges are not reported, since discordance with absolute values may lead to misinterpretation of CBC data. Current Interpretive Data was last revised on 2018. Imm gran pct 0.2 % [facility] Comment: Interpretive Data Percent cell count reference ranges are not reported, since discordance with absolute values may lead to misinterpretation of CBC data. Current Interpretive Data was last revised on 2018. Lymphocyte pct 32.2 % [facility] Comment: Interpretive Data Percent cell count reference ranges are not reported, since discordance with absolute values may lead to misinterpretation of CBC data. Current Interpretive Data was last revised on 2018. Monocyte pct 7.8 % [facility] Comment: Interpretive Data Percent cell count reference ranges are not reported, since discordance with absolute values may lead to misinterpretation of CBC data. Current Interpretive Data was last revised on 2018. Eosinophil pct 3.0 % [facility] Comment: Interpretive Data Percent cell count reference ranges are not reported, since discordance with absolute values may lead to misinterpretation of CBC data. Current Interpretive Data was last revised on 2018. Basophil pct 0.9 % [facility] Comment: Interpretive Data Percent cell count reference ranges are not reported, since discordance with absolute values may lead to misinterpretation of CBC data. Current Interpretive Data was last revised on 2018. Blood 01/21/2025 11:1 0 AM CDT 01/21/2025 5:05 PM CDT us Doug Shin MD LAB BLOOD ORDERABLES Fin al Result [facility] [address] Department of Laboratories [place], [place] [id number] * (ABNORMAL) CBC with auto differential (01/21/2025 11:10 AM CDT) Pathologist [facility] WBC 5.4 3.8 - 9.9 K/cumm Hgb 13.9 11.9 - 15.5 g/dL [facility] Hct 44.2 35.6 - 45.5 % [facility] Plt 264 150 - 400 K/cumm [facility] MPV 11.0 9.1 - 12.3 fL [facility] RBC 4.94 3.90 - 5.20 M/cumm [facility] MCV 89.5 81.3 - 96.4 fL [facility] MCH 28.1 27.1 - 33.3 pg [facility] MCHC 31.4(L) 32.3 - 35.7 g/dL [facility] RDW CV 13.5 11.1 - 14.9 % [facility] RDW SD 44.4 35.7 - 48.1 fL [facility] NRBC abs 0.00 0.00 - 0.01 K/cumm [facility] Blood 01/21/2025 11:1 0 AM CDT 01/21/2025 5:05 PM CDT Doug Shin MD LAB BLOOD ORDERABLES Fin al Result [facility] [address] [facility] [place] [address] * Creatinine (01/21/2025 11:10 AM CDT) Creatinine 0.89 0.60 - 1.10 mg/dL Blood 01/21/2025 11:1 0 AM CDT 01/21/2025 5:05 PM CDT Doug Shin MD LAB BLOOD ORDERABLES Fin al Result Performing Organization Address [facility]/[place] Co de Phone Number [facility] [address] [place] [address] * Hepatic function panel (01/21/2025 11:10 AM CDT) Bilirubin, total 0.6 0.1 - 1.2 mg/dL Bilirubin, direct <0.2 0.1 - 0.3 mg/dL [facility] Protein, pl 7.3 6.5 - 8.5 g/dL [facility] Albumin 3.8 3.5 - 5.0 g/dL [facility] Alk phos 107 40 - 130 Units/L [facility] ALT 27 7 - 45 Units/L [facility] AST 23 10 - 45 Units/L [facility] Blood 01/21/2025 11:1 0 AM CDT 01/21/2025 5:05 PM CDT Doug Shin MD LAB BLOOD ORDERABLES Fin al Result Performing Organization Address [facility]/[place] Co de Phone Number [facility] [address] Department [employer] [place], [place] [phone] from Last 3 Months Insurance [employer] Care Teams Mental Health Aide Relationship Specialty Start Date End Date Redd Toribio DO PCP - General Internal Medicine 04/24/18
--- OUTSIDE RECORDS SUMMARY | 2025-03-29 08:18 | XMS_ITS | Clinical Summary ---
Author Organization [facility] Address [address] [place] [address] Care Team Providers Care Facility Maintenance Manager Name Role Phone Redd Toribio DO Primary Care Provider Source Comments [facility],non-owned Affiliates and Associated Physician Practices is amultiple site organization consisting of ambulatory clinics and hospital sitesin [place], [place], [place] and [place]. This disclosure is being madepursuant to the Care Everywhere program and may not contain all information available regarding this patient. Last updated 18.[facility] [employer] Allergies No known active allergies Social History Tobacco Use Types Packs/Day Years Used Date Smoking Tobacco: Never Assessed Comments Unknown Sex and Gender Information Value Date Recorded Sex Assigned at Not on file Legal Sex Female 2:25 PM COMMUNICATIONS STRATEGIST Gender Identity Not on file Sexual Orientation Not on file Plan of Treatment Health Maintenance Due Date Last Done Comments COLOGUARD (AGES 45-75) - COL ON CA SCREENING 1976 COLON MONITORING 1976 COLONOSCOPY - COLON CA SCREENING 1976 CT COLONOGRAPHY - COLON CA SCREENING 1976 Colorectal Cancer Screening 1976 FIT - COLON CA SCREENING 1976 FLEX SIG - COLON CA SCREENING 1976 LIPID TESTING 1976 MAMMOGRAM 1976 HIV SCREENING 1991 HEPATITIS C SCREENING 06/18/1994 DTAP/TDAP/TD VACCINES (1 - Tdap) 1995 HEPATITIS B VACCINE (1 of 3 - 19+ 3-dose series) 1995 COVID-19 VACCINE (1 - 2023-2 5 season) 2024 DEPRESSION SCREENING 11/14/2024 INFLUENZA VACCINE (Season Ended) 2025 ZOSTER VACCINE (1 of 2) 2026 HIB VACCINE Aged Out No longer eligi ble based on patient's age to complete this topic HPV VACCINE Aged Out No longer eligi ble based on patient's age to complete this topic MENINGOCOCCAL (Group B) VACC INE SHARED DECISION-MAKING Aged Out No longer eligibl e based on patient's age to complete this topic MENINGOCOCCAL GROUPS A/C/Y/W VACCINE Aged Out No longer eligible b ased on patient's age to complete this topic PNEUMOCOCCAL VACCINE Aged Out No long er eligible based on patient's age to complete this topic Care Teams Facility Maintenance Manager Relationship Specialty Start Date End Date Redd Toribio DO [address] [place] [address] PCP - General Internal Medicine 12/21/19
--- OUTSIDE RECORDS SUMMARY | 2025-03-29 08:18 | XMS_ITS | Clinical Summary ---
Author Organization [facility] [address] Address [address] [place] [address] Care Team Providers Care Doweler Name Role Phone Redd Toribio DO Primary Care Provider [phone] Allergies No known active allergies Medications aspirin (ECOTRIN EC) 81 mg Tablet, Delayed Release (E.C.) Take 81 mg by mouth. Active atorvastatin (LIPITOR) 40 mg tablet Take 40 mg by mouth. 05/19/2020 Active citalopram (CeleXA) 20 mg tablet Take 20 mg by mouth. 01/14/2018 Active famotidine (PEPCID) 40 mg tablet Take 40 mg by mouth. 01/14/2018 Active losartan (COZAAR) 25 mg tablet Take 25 mg by mouth. 05/23/2020 Active metoprolol tartrate (LOPRESSOR) 25 mg tablet Take 25 mg by mouth. 06/08/2019 Active nitroglycerin (NITROSTAT) 0.4 mg Tablet, Sublingual Place 0.4 mg under tongue. 03/18/2020 Active Active Problems No known active problems Social History Tobacco Use Types Packs/Day Years Used Date Smoking Tobacco: Never Smokeless Tobacco: Never Comments Unknown Sex and Gender Information Value Date Recorded Sex Assigned at Not on file Legal Sex Female 11:36 AM CDT Gender Identity Not on file Sexual Orientation Not on file Last Filed Vital Signs Vital Sign Reading Time Taken Comments Blood Pressure 125/85 05/26/2020 12:20 PM CDT Pulse 64 05/26/2020 12:20 PM CDT Temperature 36.1 C (97 F) 05/26/2020 12:20 PM CDT Respiratory Rate 18 05/26/2020 12:20 PM CDT Oxygen Saturation 97% 05/26/2020 12:20 PM CDT Inhaled Oxygen Concentration - - Weight - - Height - - Body Mass Index - - Plan of Treatment Health Maintenance Due Date Last Done Comments DTAP/TDAP/TD VACCINES (1 - Tdap) 1995 HEPATITIS B VACCINES (1 of 3 - 19+ 3-dose series) 07/1995 HPV/Cotest (21-29) 1997 CERVICAL CANCER SCREENING 2006 HPV/Cotest (30-65) 2006 PAP SMEAR 2006 BREAST CANCER SCREENING 2016 COLORECTAL SCREENING 2021 Colorectal Cancer Screening 2021 FIT-DNA Q 3 years 2021 FIT/FOBT Q 1 year 2021 Flex Sig/CT Colonography Q 5 years 2021 INFLUENZA VACCINE (#1) [address] [place] [address] OPEN ACCESS HMO Care Teams Doweler Relationship Specialty Start Date End Date Redd Toribio DO [address] [facility] [address] [place] [id number] PCP - General Internal Medicine 05/26/20
[2025-03-29 08:41] LABS: Hematocrit 39.9 % (37.0-47.0); Hemoglobin 12.8 g/dL (12.0-15.0); Mean Corpuscular HGB Conc 32.1 g/dl (32-36); Mean Corpuscular Hemoglobin 28.5 pg (26-34); Mean Corpuscular Volume 88.9 fl (80-100); Mean Platelet Volume 9.8 fl (7.4-10.4); Platelet Count Result 336 k/mm3 (150-375); Red Blood Count 4.49 M/mm3 (4.2-5.4); Red Cell Distribution Width 14.4 % (11.5-14.5)
[2025-03-29 08:49] LABS: Alanine Aminotransferase 19 U/L (6-35); Albumin Level 3.9 g/dL (3.5-5.1); Alkaline Phosphatase 79 U/L (38-126); Anion Gap 6 mmol/L (4-12); Aspartate Amino Transferase 24 U/L (14-36); Bilirubin,Total 0.9 mg/dL (0.2-1.3); Blood Urea Nitrogen 20 mg/dL (7-17); Calcium 8.8 mg/dL (8.4-10.2); Carbon Dioxide 31 mmol/L (22-30); Chloride 104 mmol/L (98-107); Cholesterol 266 mg/dL (0-200); Estimated Glomerular Filt Rate > 60; Glucose 83 mg/dL (65-110); HDL Direct 71 mg/dL; Potassium 3.6 mmol/L (3.4-5.0); Sodium 141 mmol/L (137-145); Triglycerides 146 mg/dL (<150)
[2025-03-29 08:59] LABS: LDL Cholesterol Direct 135 mg/dL
[2025-03-29 09:09] LABS: Vitamin D 25 Hydroxy 27.2 ng/mL
== END 2025-03-29 08:15 | disposition home or self-care (01) ==
LOC: ANHLAB 08:15
PROVIDERS: PCP Nurse Practitioner Family; Visit Provider Nurse Practitioner Family
DX: Z00.00 Encounter for general adult medical examination without abnormal findings (principal); E55.9 Vitamin D deficiency, unspecified; Z78.9 Other specified health status; F32.A Depression, unspecified; I10 Essential (primary) hypertension; I25.10 Atherosclerotic heart disease of native coronary artery without angina pectoris; E78.2 Mixed hyperlipidemia; E66.01 Morbid (severe) obesity due to excess calories; Z68.41 Body mass index [BMI] 40.0-44.9, adult; K21.9 Gastro-esophageal reflux disease without esophagitis; M45.9 Ankylosing spondylitis of unspecified sites in spine; G25.81 Restless legs syndrome; G47.33 Obstructive sleep apnea (adult) (pediatric); R79.0 Abnormal level of blood mineral
CPT/HCPCS: 36415; 80053; 80061; 82306; 82728; 85027